=== PATIENT | male | born 1940 | race Caucasian/White ===

== ENCOUNTER → 2017-03-05 | Outpatient (CLI) | payer BC ==
[~2017-03-05] MED LIST: METO25TA3 PO; MULT-618 PO; OMEG10007 PO; SIMV20TA2 PO
--- NOTE | 2017-03-05 11:05 | DIAGNOSTIC IMAGING REPORT ---
KUB CLINICAL HISTORY: Nocturia. Nephrolithiasis. COMPARISON STUDY: KUB April 04, 2016. FINDINGS: Pelvic calcifications were shown to represent phleboliths on prior CT. Vascular calcifications are noted. No urinary calculi are identified although the renal shadows are partially obscured by stool. IMPRESSION: No urinary calculi identified although both renal shadows partially obscured by stool. Electronically signed by: Isaías Richter M.D. 03/05/2017 11:03 AM Dictated Date/Time: 03/05/2017 11:02 AM
[2017-03-05 11:23] LABS: ALT/SGPT 28 U/L (12-78); AST/SGOT 20 U/L (15-37); BLOOD UREA NITROGEN 13 mg/dl (7-18); BUN/CREATININE RATIO 12.7 (10-20); CALCIUM 9.3 mg/dl (8.5-10.1); CARBON DIOXIDE 30 mmol/L (21-32); CHLORIDE 108 mmol/L (98-107); GLUCOSE 65 mg/dl (70-99); MAGNESIUM 1.9 mg/dl (1.8-2.4); POTASSIUM 4.3 mmol/L (3.5-5.1); SODIUM 143 mmol/L (136-145)
== END | disposition home or self-care (01) ==
LOC: C.RAD 09:28
PROVIDERS: ATTEND Urology
DX: R35.1 Nocturia (principal); N40.0 Benign prostatic hyperplasia without lower urinary tract symptoms; E78.5 Hyperlipidemia, unspecified; I48.91 Unspecified atrial fibrillation

== ENCOUNTER → 2017-06-12 | Outpatient (CLI) | payer BC ==
[2017-06-12 09:54] LABS: ALT/SGPT 26 U/L (12-78); AST/SGOT 19 U/L (15-37); BLOOD UREA NITROGEN 15 mg/dl (7-18); BUN/CREATININE RATIO 16.3 (10-20); CALCIUM 8.9 mg/dl (8.5-10.1); CARBON DIOXIDE 25 mmol/L (21-32); CHLORIDE 109 mmol/L (98-107); GLUCOSE 105 mg/dl (70-99); POTASSIUM 4.1 mmol/L (3.5-5.1); SODIUM 143 mmol/L (136-145)
[2017-06-12 09:57] LABS: CHOLESTEROL 122 mg/dl (0-200); CHOLESTEROL/HDL RATIO 2.3; HDL CHOLESTEROL 53 mg/dl; LDL CHOLESTEROL CALCULATED 55 mg/dl; TRIGLYCERIDES 70 mg/dl (0-150); VERY LOW DENSITY LIPOPROT CALC 14 mg/dl
== END | disposition home or self-care (01) ==
LOC: C.LAB 07:10
DX: E78.5 Hyperlipidemia, unspecified (principal); I48.91 Unspecified atrial fibrillation

== ENCOUNTER 2022-01-13 05:14 | Observation (INO) ==
--- NOTE | 2021-12-30 13:01 | PAT Medication Instructions ---
Medication Instructions Date of Service December 30, 2021 Home Medications Medication Instructions Recorded apixaban 5 mg tablet (Eliquis) 5 mg PO BID #180 tab 01/14/21 metoprolol succinate 50 mg 50 mg PO QAM #90 tab 01/14/21 tablet,extended release 24 hr (Toprol XL) atorvastatin 20 mg tablet 20 mg PO HS rfmwxysg-pjn-sgpvs acid 300 mcg-lycopene 600 mcg-lutein 300 mcg tablet (Centrum Silver Men) 1 tab PO QAM apixaban 5 mg tablet (Eliquis) 5 mg PO BID metoprolol succinate 50 mg tablet,extended release 24 hr (Toprol XL) 50 mg PO QAM ASK your prescriber and surgeon apixaban 5 mg tablet (Eliquis) 5 mg PO BID (in order to get spinal anesthesia- will need to hold Eliquis/apixaban at least 72 hours prior to surgery) DO NOT take the morning of surgery mzkbrikl-zjf-tonne acid 300 mcg-lycopene 600 mcg-lutein 300 mcg tablet (Centrum Silver Men) 1 tab PO QAM Take morning of surgery With a small sip of water, OTHERWISE NOTHING TO EAT OR DRINK AFTER MIDNIGHT: metoprolol succinate 50 mg tablet,extended release 24 hr (Toprol XL) 50 mg PO QA M Take evening before surgery atorvastatin 20 mg tablet 20 mg PO HS Other Notes If you have any questions please call us at [phone] or [phone] or [phone] or [phone]
--- NOTE | 2022-01-02 09:53 | Anesthesiology Consultation ---
Date of Service January 02, 2022 Assessment & Plan (1) Encounter for pre-operative examination: - cardiology 01/14/21 MN: "...When he has the symptoms he describes an unusual feeling in his chest, he says it is not pain but the start of an empty feeling, he then checks his pulse and notes that it is irregular and somewhat fast...a little lightheaded if he stands up quickly when he is having these symptoms but otherwise it does not interfere much with his activities. He may have a little bit of fatigue when he strenuously exerts himself during the arrhythmia...occasional episodes of atrial fibrillation...some mild shortness of breath with climbing stairs, but he can play 18 holes of golf while he is in atrial fibrillation and really be unaware of it. He is not having any difficulty on his Eliquis...Paroxysmal atrial fibrillation: He continues to have occasional episodes of atrial fibrillation, these are not bothersome and do not seem to be increasing significantly in frequency or duration. I do not see any reason to change his treatment plan..." - COVID screening: Per assessment on 01/02/2022: Travel screen negative, no known COVID-19 positive contacts or current COVID-19 related symptoms in past 2 weeks. Pt vaccinated. Surgeon arranging preop COVID testing, scheduled 01/11/2022. Awaiting results. Chart Review Chart Review: Acceptable Risk for Surgery and Patient seen in Pre Admission Farzana ritika Teaching & Discussion Pre-Anesthesia Teaching/Discussion Notes: Instructed NPO after midnight before surgery, except medications with 15 cc of water. Medication instructions provided according to the PAT guidelines. History Surgery Operation Date: 01/13/22 07:00 Proposed Procedures p Left Total Knee Arthroplasty - Major Romano DO Height/Weight Height: 5 ft 11.5 in Weight: 81.6 kg Allergies Allergy/AdvReac Type Severity Reaction Status Date / Time No Known Drug Allergies Allergy Verified 12/28/21 13:50 GUACAMOLE AdvReac Intermediate VOMITTING/D Uncoded 04/18/21 13:17 IARRHEA Medications Home Medications Medication Instructions Recorded Confirmed Last Taken atorvastatin 20 mg tablet 20 mg PO HS 02/17/19 12/28/21 05/30/20 21:00 isvtcjlj-bjr-ptlji acid 300 1 tab PO QAM 02/17/19 12/28/21 05/28/20 08:00 mcg-lycopene 600 mcg-lutein 300 mcg tablet (Centrum Silver Men) apixaban 5 mg tablet (Eliquis) 5 mg PO BID #180 tab 01/14/21 12/28/21 Unknown metoprolol succinate 50 mg 50 mg PO QAM #90 tab 01/14/21 12/28/21 Unknown tablet,extended release 24 hr (Toprol XL) Past Medical History Medical History (Updated 01/03/22 @ 09:11 by Sakina Joseph PA-C) Atrial fibrillation Eliquis Follows with [facility] cardiology (Dr. Alexander) History of kidney stones History of skin cancer Hyperlipidemia Osteoarthritis Patient denies h/o stroke, seizures, heart attack, heart failure, DM, HTN, blood clots or blood transfusions. Exercise / Class Metabolic Activity II 4-5 Yardwork/Stairs/Walk up hill (occasional shortness of breath with activity chronic with afib per pt, resolves once partway upstairs; denies chest discomfort; noted in cardio records) Past Family History Family History Father Stroke Past Surgical History Surgical History (Updated 12/28/21 @ 13:58 by Kelly Larios RN) H/O elbow surgery LEFT History of cataract surgery RT/LEFT History of colonoscopy History of herniorrhaphy INGUINAL History of lithotripsy History of tooth extraction Hx of prostate biopsy Past Anesthesia History No Hx of Anesthesia Complications and No Family Hx of Anesthesia Complications History of PONV No Hx of PONV and No Hx of Motion Sickness Social History Smoking Status: Never smoker Do You Dip or Chew Tobacco: No Hx Alcohol Use: Yes Alcohol type: beer and wine alcohol intake frequency: other Alcohol Intake Frequency Comment: RARELY Hx Substance Use: No substance use type: does not use Review of Systems Pt states infrequently if sitting and resting then stands will feel palpitations with associated brief lightheadedness, denies presyncope or syncope. Also noted in cardio records. Patient denies chest pain, snoring, witnessed apneas, reflux, fever, chills, cough or wheezing. Physical Exam Vital Signs Vitals BP 127/76 P 67 TEMP 98.7 SP02 97% on RA RESP 17 Physical Full cervical extension range of motion without pain TMD 3.5 finger breaths Mallampati Score 3 Dentition: upper removable partial; denies chipped or loose teeth, implants or bridges Lungs: normal respiratory effort. Clear throughout to auscultation, no judaism itious breath sounds Cardiac: regular rate and rhythm, no murmurs noted Carotid arteries: negative bruit bilat Lab Results Anesthesia Preop Results Results Anesthesia Widget: WBC 7.12 K/uL (4.8-10.8) 01/02/22 Hgb 15.0 g/dL (14.0-18.0) 01/02/22 Hct 44.3 % (42-52) 01/02/22 Plt 195 K/uL (130-400) 01/02/22 Na 140 mmol/L (136-145) 01/02/22 K 4.5 mmol/L (3.5-5.1) 01/02/22 Cl 106 mmol/L (98-107) 01/02/22 CO2 29 mmol/L (21-32) 01/02/22 BUN 20 mg/dl (6-23) 01/02/22 Creat 0.97 mg/dl (0.6-1.4) 01/02/22 Glucose Level 105 mg/dl (70-99(Fasting)) H 01/02/22 PT 11.6 Seconds (9.0-12.0) 01/02/22 PTT 30.2 Seconds (21.0-31.0) 01/02/22 INR 1.1 (0.9-1.1) 01/02/22 Blood Type A Positive 01/02/22 Antibody Screen NEGATIVE 01/02/22 Testing Electrocardiogram Date: 01/02/22 NSR, rate 65 bpm Left anterior fascicular block Chest X-Ray Date: 01/02/22 The cardiomediastinal and hilar silhouettes are within normal limits. Probable nipple shadow the right lung base. The patient is mildly rotated on the lateral view. Mild pulmonary hyperinflation. No pneumothorax, pleural effusion, airspace consolidation or overt pulmonary edema. Healed chronic fracture deformity of the posterior left fifth rib. IMPRESSION: No acute process.
[2022-01-13] MEDS ORDERED: ceFAZolin 2000MG 2,000 MG/15 ML SYR IV SCH (06:00)
[2022-01-13] MEDS ORDERED: dexAMETHasone 4 MG TAB PO SCH ×2 (06:00→11:00)
[2022-01-13] MEDS ORDERED: Ketorolac (*for OR use only*) 30 MG, dexAMETHasone 4 MG, KETAMINE HCL (**OR use only) 1... INFIL SCH (06:00)
[2022-01-13] MEDS ORDERED: TRANEXAMIC ACID 1,000 MG **IV Intra-op IV SCH (06:00)
[2022-01-13] MEDS ORDERED: LR 15ML/HR IV SCH (06:00)
[2022-01-13] MEDS ORDERED: ACETAMINOPHEN 500 MG TAB PO SCH (06:00)
[2022-01-13] MEDS ORDERED: LR 60ML/HR IV SCH (06:00)
[2022-01-13] MEDS ORDERED: LR 500ML BOLUS IV SCH (06:00)
[2022-01-13] MEDS ORDERED: FAMOTIDINE 20 MG TAB PO SCH (06:00)
[2022-01-13] MEDS ORDERED: TRANEXAMIC ACID 1,000 MG **IV Pre-op IV SCH (06:00)
[2022-01-13] MEDS ORDERED: GABAPENTIN 300 MG CAP PO SCH (06:00)
[2022-01-13] MEDS ORDERED: MIDAZOLAM HCL 1 MG/ML 2ML VIAL ONE (06:29)
[2022-01-13] MEDS ORDERED: PROPOFOL IV EMULSION 10 MG/ML 20 ML VIAL IV ONE (06:29)
[2022-01-13] MEDS ORDERED: fentaNYL citrate 100 MCG/2 ML VIAL ONE (06:29)
[2022-01-13] MEDS ORDERED: BUPIVACAINE 0.5 % 5 MG/1 ML PF 10ML VIAL ONE (06:36)
[2022-01-13] MEDS ORDERED: ORTHO JOINT ANESTHETIC ONE (06:40)
--- NOTE | 2022-01-13 06:42 | History & Physical Bridge Note ---
Date of Service January 13, 2022 History & Physical Bridge Note I have examined the patient, reviewed the History & Physical and in the interval since the performance of the History & Physical I have noted the following changes of clinical significance: no changes noted
[2022-01-13] MEDS ORDERED: ONDANSETRON INJ 2 MG/ML 2 ML VIAL ONE (07:14)
[2022-01-13] MEDS ORDERED: ePHEDrine sulfate 50 MG/ML AMP ONE (07:20)
[2022-01-13] MEDS ORDERED: ONDANSETRON INJ 2 MG/ML 2 ML VIAL IV PRN ×2 (07:21→09:55)
[2022-01-13] MEDS ORDERED: ATROPINE SULFATE 0.1 MG/ML 10ML SYR IV PRN (07:21)
[2022-01-13] MEDS ORDERED: fentaNYL citrate 100 MCG/2 ML VIAL IV PRN (07:21)
[2022-01-13] MEDS ORDERED: ePHEDrine sulfate 50 MG/ML AMP IV PRN (07:21)
--- NOTE | 2022-01-13 08:00 | Operative Report ---
PG Post Operative Report Pre & Post Diagnosis Operation Date: 01/13/22 07:00 Pre-Op Diagnosis: Left Knee Osteoarthritis Post-Op Diagnosis: Left Knee Osteoarthritis I identified the patient and participated in the time-out.: Yes Procedure Operation Date: 01/13/22 07:00 Actual Procedures p Left Total Knee Arthroplasty(Left) - Major Romano DO Surgeon Major Romano DO [employer] Service Team Member Major Mckeon PAC Estimated Blood Loss 30 Findings Consistent with Post-Op Diagnosis Specimens Left femoral and tibial bone Complications none Disposition Disposition: Recovery Room Indications Richmond is a pleasant 81-year-old male who is been doing with chronic increasing left knee pain. X-rays and clinical examination are diagnostic for advanced arthritis of the left knee. After failing conservative treatment, he elected proceed with a left total knee arthroplasty. Description of Procedure Implants used: I used a Davian Persona total knee arthroplasty system with a size 10 standard femur, G tibia, 34 oval patella, and a size 11 medial congruent polyethylene bearing. All components were cemented in place with Biomet cement. Richmond arrived [facility] for the above procedure. He was seen in the preoperative holding area and the operative extremity was identified and signed. He was given a preoperative antibiotic, TXA, a spinal anesthetic and an adductor nerve block. He was taken back to the operating room and laid on the table in supine position. He was given basic sedation. The operative knee was then prepped and draped in sterile fashion. A timeout was done, and the patient and the operative extremity was properly identified. A midline incision was made directly over the patella. Dissection was taken down to the extensor mechanism. A subvastus arthrotomy was used. The medial retinaculum was released and the fat pad was mostly excised. The knee was flexed and the ACL, PCL, and meniscus were removed. A drill was sent down the center of the femoral canal followed by an intramedullary alaina. Off that alaina a distal femoral cutting block was placed. 9 mm was resected off the distal femur at 5 of valgus. A posterior referencing AP sizing guide was then placed on the distal femur. The femur measured to be a size 10. 2 drill holes were placed in 3 of external rotation. A 4-in-1 cutting block was then impacted into place. Anterior, posterior, and chamfer cuts were then made. The proximal tibia was then exposed. An external tibial alignment guide was placed. A tibial cut guide was then anchored in place and the proximal tibia was then resected. The posterior aspect of the knee was then opened up and any additional meniscus fragments and osteophytes were removed. The tibia measured to be a size G. The tibial plate was then placed in the idalia ropriate rotation and the tibia was drilled and punched. Trial components were then placed. I used a size 11 medial congruent polyethylene insert. The knee was brought through a full range of motion and felt to be stable. The peg holes for the femoral component were then drilled. The patella was then everted and 9 mm was resected off the posterior aspect of the patella. The patella measured to be a size 34 oval. 3 peg holes were then drilled. A trial patella was placed. The knee was once again brought through a full range of motion and felt to be stable. Trial components were then removed. The surrounding soft tissues were injected with 100 cc of an orthopedic pain control cocktail. All components were then cemented into place with Biomet cement. The final polyethylene insert was then snapped into place. Once cement was dry the tourniquet was deflated. Hemostasis was obtained. A dilute betadyne lavage was then done for 3 minutes. The joint was then irrigated with normal saline solution. The subvastus arthrotomy was then closed with #1 Vicryl suture. The skin was closed with 2-0 Vicryl, 3-0V lock suture, and laura. A soft compressive dressing was placed. He was then transferred to a hospital bed and taken to the postanesthesia care unit in stable condition. He tolerated the procedure well. Major Mckeon PA-C, was present for the entire procedure. He was critical for patient positioning, prepping, draping, retraction exposure, wound closure and application of sterile dressing. I attest to the content of the Intraoperative Record and any orders documented therein. Any exceptions are noted below.
--- NOTE | 2022-01-13 09:10 | XRay Report ---
XR knee LT 1 or 2V routine CLINICAL HISTORY: Postoperative evaluation. COMPARISON: Left knee radiographs September 13, 2021. FINDINGS: Alignment of the total left knee arthroplasty is anatomic. There is no periprosthetic frac ture or unexpected radiopaque foreign body. There are skin laura. IMPRESSION: Expected findings following total left knee arthroplasty. ACT 112: Negative or not required by law. Electronically signed by: Isaías Richter M.D. 01/13/2022 9:09 AM
--- NOTE | 2022-01-13 09:26 | Anesthesiology Progress Note ---
Date of Service January 13, 2022 Anesthesia Post Procedure Vital Signs Vital Signs: Temp Pulse Pulse Resp BP Pulse Ox 01/13/22 09:05 79 17 103/63 98 01/13/22 08:55 72 16 102/77 97 01/13/22 08:45 76 19 100/80 97 01/13/22 08:35 70 21 105/73 97 01/13/22 08:26 97.2 F L 76 13 94/62 L 98 01/13/22 05:33 98.4 F 74 20 133/71 97 Transfer of Care Handoff Completed per policy Notes Mental Status: alert / awake / arousable and participated in evaluation Patient Amnestic to Procedure: Yes Nausea / Vomiting: adequately controlled Pain: adequately controlled Airway Patency, RR, SpO2: stable & adequate BP & HR: stable & adequate Hydration State: stable & adequate Neuraxial Anesthesia: was administered and sensory block is resolving Anesthetic Complications: no major complications apparent and Pt Satisfied with anesthetic care
[2022-01-13] MEDS ORDERED: oxyCODONE HCL IR 5 MG TAB (IMMEDIATE RELEASE) PO PRN (09:55)
[2022-01-13] MEDS ORDERED: HYDROmorphone INJ 0.5 MG/0.5 ML SYR IV PRN (09:55)
[2022-01-13] MEDS ORDERED: METOCLOPRAMIDE HCL INJ 5 MG/ML 2 ML VIAL IV PRN (09:55)
[2022-01-13] MEDS ORDERED: MULTIVITAMIN TAB PO SCH (09:55)
[2022-01-13] MEDS ORDERED: NALOXONE HCL 0.4 MG/1 ML VIAL/CARP IV PRN (09:55)
[2022-01-13] MEDS ORDERED: MAGNESIUM HYDROXIDE SUSP 30 ML UDC PO PRN (09:55)
[2022-01-13] MEDS ORDERED: bisacodyL 10 MG SUPP PR PRN (09:55)
[2022-01-13] MEDS: SODIUM CHLORIDE 0.9% 1000ML 1,000 ML IV SCH ×2 (11:52→21:55)
[2022-01-13] MEDS: METOPROLOL SUCC 50MG EXT REL TAB PO SCH (11:53)
[2022-01-13] MEDS: DOCUSATE SODIUM 100 MG CAP PO SCH ×2 (12:36→19:45)
[2022-01-13] MEDS: KETOROLAC TROMETHAMINE 15 MG/ML VIAL IV SCH ×3 (12:36→21:46)
[2022-01-13] MEDS: ACETAMINOPHEN 500 MG TAB PO SCH ×2 (14:17→21:44)
[2022-01-13] MEDS: ceFAZolin 2000MG 2,000 MG/15 ML SYR IV SCH (16:14)
[2022-01-13] MEDS ORDERED: ATORVASTATIN 20 MG TAB PO SCH (21:00)
[2022-01-13] MEDS ORDERED: SENNA 8.6 MG TAB PO SCH (21:00)
[2022-01-14] MEDS: ceFAZolin 2000MG 2,000 MG/15 ML SYR IV SCH (00:42)
[2022-01-14] MEDS: KETOROLAC TROMETHAMINE 15 MG/ML VIAL IV SCH ×2 (04:02→10:06)
[2022-01-14] MEDS: ACETAMINOPHEN 500 MG TAB PO SCH (05:34)
--- NOTE | 2022-01-14 07:11 | Orthopedic Progress Note ---
Date of Service January 14, 2022 Assessment & Plan (1) Status post left knee replacement: Overall is doing very well. Is not having any pain in the left knee. He will be seen by physical therapy today for ambulation and range of motion exercises. We will encourage voiding throughout the morning. If he is able to void, he can be discharged to home on oral pain medications. He is on Eliquis for DVT prophylaxis. He will follow-up with orthopedics in 2 weeks. Jason Richmond was seen and examined at bedside this morning. Overall is doing very well. Is not having much pain in the right knee. He had to be catheterized last night and he has not voided yet. He has been able to ambulate to the bathroom. He has no complaints. Review of Systems All systems reviewed & are unremarkable except as noted in HPI & below. Physical Exam On physical examination of the left knee, his dressing is clean and dry. His leg is out full extension. He has active dorsiflexion plantarflexion of his left ankle. Results & Data Results & Data Laboratory Results . Diagnostic Findings Postoperative x-rays of the left knee show the prosthesis to be in anatomic alignment without any evidence of fracture, desiccation, or loosening. PG Care Time/CCT Total # of Minutes Spent Total Time Spent with Patient: Total time spent is greater than 50% in coordination of care (as documented) at patient's floor/unit and/or counseling patient: Coding Level of Care Code 44633 Post Operative Follow-Up Diagnoses Status post left knee replacement Z96.652
--- NOTE | 2022-01-14 07:12 | Discharge Summary ---
Date of Service January 14, 2022 Principal Diagnosis Same as "Discharge Diagnosis" noted below under Discharge Instructions. Discharge Exam On physical examination of the left knee, his dressing is clean and dry. His leg is out full extension. He has active dorsiflexion plantarflexion of his left ankle. Discharge Data Procedures Performed Operation Date: 01/13/22 07:00 Actual Procedures p Left Total Knee Arthroplasty(Left) - Major Romano DO Ordered Studies 01/13/22 05:00 US - OR guided needle placemen Routine Hospital Course (1) Status post left knee replacement: On January 13 Richmond arrived at [facility] and underwent a left knee replacement without complication. He had a spinal anesthetic. Postoperatively he was started on Eliquis for DVT prophylaxis and transferred to the general orthopedic floors. His hospital course was uneventful. On postop day #1, his vital signs are stable and his pain was well controlled. He was able to participate well with physical therapy doing ambulation and range of motion exercises. He was able to void. He was then discharged home. He will follow-up with orthopedics in 2 weeks. PG Care Time/CCT Total # of Minutes Spent Total Time Spent with Patient: Total time spent is greater than 50% in coordination of care (as documented) at patient's floor/unit and/or counseling patient: Discharge Plan Discharge Items Patient Disposition: Home - Home Health Services Reason For Visit: Left Knee Osteoarthritis Discharge Diagnosis: Left knee replacement Activity: As commented below Non-emergency contact: Surgeon Call non-emergency contact if: your wound has increased redness and your wound has increased drainage Follow-up/Referrals: Anupam Cohen Jr, DO [Primary Care Provider] - Diet: Regular Addtl Attending Provider Instructions: Activity and Therapy Recommendations: * If you are using [facility] then therapy will be provided at your home until they feel you have accomplished all of your goals. * If you are using [facility] then Physical Therapy will be provided until they feel you are ready to start Outpatient Physical Therapy. * If you are not using home therapy then Outpatient Physical Therapy should start about 3-5 days from your day of surgery. Therapy will last about 6-10 weeks * It is important not to put a pillow under your knee when you are relaxing or sleeping. It is just as important to make sure you are getting your knee perfectly straight as it is to regain your knee bend. * You were shown a series of exercises in the hospital. Do these exercises three times each day including the exercises you were shown in physical therapy. * Get up and walk several times each day. For the first four weeks, try not to stand or walk for more than one hour at a time. If you do stand or walk for more than one hour, you will not hurt anything, but your leg will likely swell. * As you feel comfortable, you may change from the walker or crutches to a cane and then to independent walking. Medications: * Narcotic You will likely be sent home from the hospital with a prescription for the narcotic pain medication that worked best throughout your stay. * Eliquis continue taking yourEliquis as prescribed * Other medications may be prescribed for specific circumstances. If you have any questions, please call the office at . * Resume previous home medications unless otherwise instructed TEDs/Elastic Stockings: The white elastic stockings help limit swelling and prevent blood clots from forming in your legs.~ The more you wear them, the more they work. Wear them for six weeks. Dressing Care: The dressing can be changed after physical therapy on postop day #1. Daily dry dressing changes for a few days, especially if the incision is still draining some. If the incision is not draining then you may leave the laura open to air. If there is a little bit of drainage or if the laura are getting stuck on your clothing then cover the incision with a dry dressing. The laura will be removed at your 2 week follow-up appointment. Showering: You may shower 5 days from the day of surgery as long as the incision is no longer draining. You may shower with the laura exposed. Let soapy water run over the laura and pat them dry. Do not scrub or soak the incision. Things To Watch For: * Drainage from the incision site that occurs more than one week after your surgery. * Increased redness at the incision site. * Fever above 102 degrees Fahrenheit. * Unusual chest pain or shortness of breath. * Call [facility] at with any of the above problems Follow-Up Visit: Follow-up with Dr. Romano's PA (Major Mckeon) 2-3 weeks after your day of surgery. He will remove your laura and answer any questions. If you have any additional questions or concerns, Dr Romano is usually in the office at the same time and will be available An appointment was probably scheduled when you signed-up for surgery in the office. If you have any questions call Office Instructions: More detailed instructions as well as Frequently Asked Questions were provided in a folder by our office when you signed-up for surgery. Please review these instructions when you get home. If you have any further questions or concerns, please feel free to call the office at [phone] Pending Studies at Discharge: No Stand-Alone Forms: [facility] [employer], Smoking Cessation Medications and DC Order Prescriptions: New oxycodone-acetaminophen 5-325 mg tablet 1 tab PO Q6H PRN (Reason: pain) Qty: 30 RF: 0 Continued Eliquis 5 mg tablet 5 mg PO BID Qty: 180 RF: 3 metoprolol succinate [Toprol XL] 50 mg tablet extended release 24 hr 50 mg PO QAM Qty: 90 RF: 3 atorvastatin 20 mg Tablet 20 mg PO HS RF: 0 Centrum Silver Men 300-600-300 mcg Tablet 1 tab PO QAM RF: 0 Discharge Orders: Discharge Order (Routine); Ordered 01/14/22 Ordered By: Major Romano Admission Data Admit Date/Time: 01/13/22 08:26 Attending Provider: Major Romano Admit Provider: Major Romano Primary Care Provider: Anupam Cohen Jr
[2022-01-14] MEDS: METOPROLOL SUCC 50MG EXT REL TAB PO SCH (08:47)
[2022-01-14] MEDS: DOCUSATE SODIUM 100 MG CAP PO SCH (08:48)
[2022-01-14] MEDS ORDERED: APIXABAN 5 MG TABLET PO SCH (09:00)
[2022-01-14] MEDS ORDERED: CEROVITE ADV FORMULA TAB PO SCH (09:00)
== END 2022-01-14 15:11 | disposition home health service (06) ==
LOC: PACUINP 05:14 → ASU 05:14 → 3E 11:31

== ENCOUNTER 2022-03-21 02:06 | Inpatient (IN) ==
[2022-03-21] MEDS ORDERED: MoRPHine SULFATE 4 MG/ML 1 ML CARP\\VIAL IV STA (02:33)
[2022-03-21] MEDS ORDERED: ONDANSETRON 4 MG OD TAB PO STA (02:33)
[2022-03-21 02:59] LABS: Basophils # (auto) 0.03 K/uL (0-0.2); Basophils % (auto) 0.2 %; Eosinophils # (auto) 0.01 K/uL (0-0.50); Eosinophils % (auto) 0.1 %; Hemoglobin 15.1 g/dl (14.0-18.0); Immature Granulocytes # (auto) 0.07 K/uL (0.00-0.02); Immature Granulocytes % (auto) 0.5 %; Lymphocytes # (auto) 1.04 K/uL (1.2-3.4); Lymphocytes % (auto) 6.8 %; Mean Corpuscular Hemoglobin 32.5 pg (25.0-34.0); Mean Corpuscular Hgb Conc 34.3 g/dL (32.0-36.0); Mean Corpuscular Volume 94.6 fL (80.0-100.0); Mean Platelet Volume 9.1 fL (9.4-12.4); Monocytes # (auto) 0.82 K/uL (0.24-0.82); Monocytes % (auto) 5.3 %; Neutrophils # (auto) 13.41 K/uL (1.4-6.5); Neutrophils % (auto) 87.1 %; Platelet Count 205 K/uL (130-400); RDW Coefficient of Variation 11.9 % (11.5-14.5); RDW Standard Deviation 41.6 fL (36.4-46.3); Red Blood Count 4.65 M/uL (4.63-6.08); White Blood Count 15.38 K/ul (4.8-10.8)
[2022-03-21 03:01] LABS: Appearance Urine Clear (Clear); Bacteria Urine Automated Negative (Negative); Bilirubin Urine Negative (Negative); Blood Urine Negative (Negative); Color Urine Yellow; Glucose Urine UA Negative (Negative); Ketones Urine 3+ (Negative); Leukocyte Esterase Urine Trace (Negative); Nitrite Urine Negative (Negative); RBC Urine Automated 0-4 /hpf (0-4); Specific Gravity Urine 1.029 (1.000-1.030); Urobilinogen Urine Negative (Negative); pH Urine 7.5 (4.5-7.5)
[2022-03-21] MEDS ORDERED: SODIUM CHLORIDE 0.9% 1000ML 500 ML IV ONE (03:02)
[2022-03-21] MEDS ORDERED: HYDROmorphone INJ 0.5 MG/0.5 ML SYR IV STA (03:02)
--- NOTE | 2022-03-21 03:10 | Emergency Department Note ---
History of Present Illness General Chief complaint: Abdominal Pain Stated complaint: ABD PAIN Time Seen by Provider: 03/21/22 02:18 History of Present Illness Maximum Pain Intensity: 10 This 81-year-old presents to the ER complaining of right upper quadrant pain after eating ham salad today Location: Right upper quadrant Quality: Painful Severity: Severe Duration: Today Timing: Today Context: Patient was concerned and came in Modifying factors: better with rest; worse with palpation Patient denies chest pain, dyspnea, vomiting, diarrhea, flulike illness. No history of similar symptoms in the past. He still has his gallbladder. Home Medications Medication Instructions Recorded Confirmed Type atorvastatin 20 mg tablet 20 mg PO HS 02/17/19 02/28/22 History ebbuhqmy-uzg-[id number] acid 300 1 tab PO QAM 02/17/19 02/28/22 History mcg-lycopene 600 mcg-lutein 300 mcg tablet (Centrum Silver Men) oxycodone-acetaminophen 5 mg-325 1 tab PO Q6H PRN pain #30 tabs 01/14/22 02/28/22 Rx mg tablet alfuzosin 10 mg tablet,extended 10 mg PO DAILY #30 tabs 01/16/22 02/28/22 Rx release 24 hr apixaban 5 mg tablet (Eliquis) 5 mg PO BID #180 tabs 01/17/22 02/28/22 Rx metoprolol succinate 50 mg 50 mg PO QAM #90 tabs 01/17/22 02/28/22 Rx tablet,extended release 24 hr (Toprol XL) Allergies Allergy/AdvReac Type Severity Reaction Status Date / Time No Known Drug Allergies Allergy . Verified 02/28/22 10:54 Past Med/Surg History Medical History Atrial fibrillation Eliquis Follows with [facility] [place] cardiology (Dr. Alexander) History of kidney stones History of skin cancer Hyperlipidemia Osteoarthritis Surgical History H/O elbow surgery LEFT History of cataract surgery RT/LEFT History of colonoscopy History of herniorrhaphy INGUINAL History of lithotripsy History of tooth extraction Hx of prostate biopsy Family History Father Stroke Social History Smoking Status: Never smoker Second Hand Exposure: No; Hx Alcohol Use: Yes Alcohol type: beer and wine Hx Substance Use: No Preferred Language: Tajik Communication Ability: Effective Yard Driver Required: No Beliefs That Will Affect Care: None marital status: Life Partner Current Living Situation: Significant Other Current Living Situation Comment: " [facility]" IN [place]ATE [place] EACH YR current occupational status: retired Feels Safe at Home: Yes Assistive Devices: Walker Review of Systems A total of 10 systems reviewed and were otherwise negative Physical Exam Vital Signs Vital Signs - 24 hr 03/21/22 02:11 03/21/22 03:16 03/21/22 03:16 Temperature 36.7 C Temperature Source Temporal Artery Scan Pulse Rate 92 H 84 Pulse Rate [Apical] 84 Pulse Rhythm Regular Pulse Rhythm [Apical] Regular Pulse Strength [Apical] Normal Respiratory Rate 18 16 16 Respiratory Effort / Characteristics Non-Labored Spontaneous Respiratory Depth Normal Normal Respiratory Pattern Regular Blood Pressure 166/91 H Blood Pressure [Right Arm] 148/99 H Blood Pressure Mean 116 Blood Pressure Mean [Right Arm] 115 Blood Pressure Position [Right Arm] Lying Pulse Oximetry 98 96 96 Oxygen Delivery Method Room Air Room Air Room Air Sepsis Recent Fever Within 48 Hours No Sepsis New/Unexplained Change in Mental Status N/A Sepsis Action Taken by Nursing No Action Required 03/21/22 05:00 Temperature Temperature Source Pulse Rate Pulse Rate [Apical] 80 Pulse Rhythm Pulse Rhythm [Apical] Pulse Strength [Apical] Respiratory Rate 20 Respiratory Effort / Characteristics Respiratory Depth Respiratory Pattern Blood Pressure Blood Pressure [Right Arm] 142/82 H Blood Pressure Mean Blood Pressure Mean [Right Arm] 102 Blood Pressure Position [Right Arm] Pulse Oximetry 94 Oxygen Delivery Method Room Air Sepsis Recent Fever Within 48 Hours Sepsis New/Unexplained Change in Mental Status Sepsis Action Taken by Nursing VITALS: Vitals are noted on the nurse's note and reviewed by myself. Vital signs stable. GENERAL: Pleasant male pacing the room in pain, in no acute distress, nondiaphoretic, well-developed well-nourished. SKIN: The skin was without rashes, erythema, edema, or bruising. There is no tenting of the skin. Capillary reflex less than 2 seconds. HEAD: Normocephalic atraumatic. EARS: External auditory canals clear, EYES: Pupils equal round and reactive to light and accommodation. Conjunctivae without injection, sclerae without icterus. Extraocular movements intact. NOSE: Patent, turbinates without inflammation or discharge. MOUTH: Mucous membranes moist. Pharynx without erythema or exudate. Uvula midline. Airway patent. Tongue does not deviate. NECK: Supple without nuchal rigidity. No lymphadenopathy. No thyromegaly. Cervical spine is nontender. No JVD. HEART: Regular rate and rhythm LUNGS: Clear to auscultation bilaterally without wheezes, rales or rhonchi. No retractions or accessory muscle use. ABDOMEN: Positive bowel sounds x 4. Normal tympanic percussion. Soft, tender right upper quadrant,, without masses or organomegaly. Tracy sign positive. No guarding or rebound tenderness. No CVA tenderness MUSCULOSKELETAL: No muscle atrophy, erythema, or edema noted. NEURO: Patient was alert and oriented to person place and time. Normal sensation to light and sharp touch. No focal neurological deficits. Course Administered Medications Discontinued Medications Hydromorphone HCl (Hydromorphone Inj 0.5 Mg/0.5 Ml Syr) 0.5 mg IV NOW STA Stop: 03/21/22 03:03 Last Admin: 03/21/22 03:09 Dose: 0.5 mg Documented By: GABE Sodium Chloride (Nss 1000ml) 500 mls @ 999 mls/hr IV .Q31M ONE Stop: 03/21/22 03:32 Last Infusion: 03/21/22 04:37 Dose: 0 mls/hr Documented By: Admin: 03/21/22 03:12 Dose: 999 mls/hr Documented By: GABE Ioversol (Optiray 300 500ml) 100 ml IV ONCE ONE Stop: 03/21/22 04:37 Last Admin: 03/21/22 04:37 Dose: 94 ml Documented By: WARREN Morphine Sulfate (Morphine Sulfate 4 Mg/Ml 1 Ml Carp\\Vial) 4 mg IV NOW STA Stop: 03/21/22 02:34 Last Admin: 03/21/22 02:49 Dose: 4 mg Documented By: GABE Ondansetron HCl (Ondansetron 4 Mg Od Tab) 4 mg PO NOW STA Stop: 03/21/22 02:34 Last Admin: 03/21/22 02:51 Dose: 4 mg Documented By: GABE Medical Decision Making Medical Records Attestation: I reviewed the patient's medical records. Home Medications Current Medication List: was personally reviewed by me Laboratory Data Attestation: I reviewed the patient's lab results. Result diagrams: 03/21/22 02:47 03/21/22 02:47 Lab Results 03/21/22 03/21/22 03/21/22 Range/Units 02:47 02:47 02:50 WBC 15.38 H (4.8-10.8) K/ul RBC 4.65 (4.63-6.08) M/uL Hgb 15.1 (14.0-18.0) g/dl Hct 44.0 (40.1-51.0) % MCV 94.6 (80.0-100.0) fL MCH 32.5 (25.0-34.0) pg MCHC 34.3 (32.0-36.0) g/dL RDW Std Deviation 41.6 (36.4-46.3) fL RDW Coeff of Marie 11.9 (11.5-14.5) % Plt Count 205 (130-400) K/uL MPV 9.1 L (9.4-12.4) fL Immature Gran % (Auto) 0.5 % Neut % (Auto) 87.1 % Lymph % (Auto) 6.8 % [place] % (Auto) 5.3 % Eos % (Auto) 0.1 % Baso % (Auto) 0.2 % Neut # (Auto) 13.41 H (1.4-6.5) K/uL Lymph # (Auto) 1.04 L (1.2-3.4) K/uL [place] # (Auto) 0.82 (0.24-0.82) K/uL Eos # (Auto) 0.01 (0-0.50) K/uL Baso # (Auto) 0.03 (0-0.2) K/uL Immature Gran # (Auto) 0.07 H (0.00-0.02) K/uL Sodium 136 (136-145) mmol/L Potassium 3.8 (3.5-5.1) mmol/L Chloride 102 (98-107) mmol/L Carbon Dioxide 21 (21-32) mmol/L Anion Gap 13 H (3-11) BUN 17 (6-23) mg/dl Creatinine 0.90 (0.6-1.4) mg/dl Est Cr Clr Drug Dosing 70.7 ml/min Est GFR ( Amer) 92.5 ml/min Est GFR (Non-Af Amer) 79.8 ml/min BUN/Creatinine Ratio 18.9 (10-20) Glucose 183 H (70-99(Fasting)) mg/dl Calcium 9.5 (8.5-10.1) mg/dl Total Bilirubin 1.2 H (0.2-1.0) mg/dl AST 17 (13-39) U/L ALT 13 (7-52) U/L Alkaline Phosphatase 106 H (34-104) U/L Troponin I High Sens 5.3 (0-20) pg/ml Total Protein 6.7 (6.0-8.3) gm/dl Albumin 4.1 (3.4-5.0) gm/dl Globulin 2.6 (2.5-4.0) gm/dl Albumin/Globulin Ratio 1.6 (0.9-2) Lipase 9 L (11-82) U/L Urine Color Yellow Urine Appearance Clear (Clear) Urine pH 7.5 (4.5-7.5) Ur Specific [place] 1.029 (1.000-1.030) Urine Protein Trace H (Negative) Urine Glucose (UA) Negative (Negative) Urine Ketones 3+ H (Negative) Urine Blood Negative (Negative) Urine Nitrite Negative (Negative) Urine Bilirubin Negative (Negative) Urine Urobilinogen Negative (Negative) Ur Leukocyte Esterase Trace H (Negative) Urine WBC (Auto) 5-10 H (0-5) /hpf Urine RBC (Auto) 0-4 (0-4) /hpf U Hyaline Cast (Auto) 1-5 (0-5) /lpf U Epithel Cells (Auto) 10-20 H (0-5) /lpf Urine Bacteria (Auto) Negative (Negative) Urine Yeast Not Reportable Imaging Data Attestation: I personally reviewed and interpreted this imaging study as follows: MDM Narrative Prior records/ancillary studies reviewed. Triage Nursing notes reviewed. Additional history obtained from family. The patient's history was concerning for abdominal pain. Differential diagnosis: Etiologies such as appendicitis, diverticulitis, PUD, biliary pathology, UTI, pancreatitis, obstruction, mesenteric ischemia, aortic pathology, infections, inflammatory bowel disease, renal colic, as well as others were entertained. Physical examination findings: As above. ER treatment provided: An order was placed for continuous cardiac monitoring. The monitor shows a rate of 60-1 20 with a sinus rhythm. Fluids, morphine, Dilaudid, Zofran On reassessment the patient felt better. Diagnostics interpreted by me: ECG: Ordered for upper abdominal pain EKG: Left anterior fascicular block, normal sinus, rate of 84. Impression normal sinus rhythm with a left anterior fascicular block interpreted by myself I think arrhythmia is unlikely. EKG shows no interval abnormalities such as WPW. There are no findings to suggest Brugada syndrome. Cardiac monitoring in the emergency department reveals no tachycardic or bradycardic dysrhythmia. Hypertrophic cardiomyopathy was considered but there are no clear historical elements pointing toward this. EKG is not suggestive. The QRS voltage is not extremely large and there are no suggestive Q waves. The labs revealed leukocytosis Hyperglycemia without DKA Imaging studies: US RUQ: Pancreas is not visualized The gallbladder is moderately distended measuring up to 10 cm in length. The wall measures 3 mm which is at the upper limits of normal in thickness. Small sludge but no stones identified. The common bile duct is normal in caliber at 4 mm The right kidney is normal Radiologist: Eric Driscoll MD Consultation: A consultation was placed with the GS, Dr David. The case was discussed and diagnostics were reviewed. The patient was evaluated in the ER for further treatment. Exam and history seem consistent with biliary colic concerning for acute cholecystitis. Surgery was consulted and will see the patient in the morning. Patient informed and all questions were answered. He was started on antibiotics. By the evaluation outlined above emergent etiologies such as appendicitis, diverticulitis, UTI, pancreatitis, obstruction, mesenteric ischemia, aortic pathology, inflammatory bowel disease, renal colic, as well as others were deemed relatively unlikely. The pt informed about the findings as listed above. All questions were answered and pleased with the treatment. The chart was completed utilizing Instant AV Speech voice recognition software. Grammatical errors, random word insertions, pronoun errors, and incomplete sentences are an occassional consequence of this system due to software limitations, ambient noise, and hardware issues. Any formal questions or concerns about the content, text, or information contained within the body of this dictation should be directly addressed to the physician patient services assistant for clarification. Impression & Plan Biliary colic, Abdominal pain, acute Discharge Plan Visit Data Chief Complaint: Abdominal Pain Stated Complaint: ABD PAIN ED Provider: Jc Samuels ED Midlevel Provider: Claudine Sawyer Discharge Problem: Biliary colic, Abdominal pain, acute Patient Disposition: Being Evaluated by Surgeon Condition: Good Forms Stand Alone Forms: [facility] [employer] Prescriptions Prescriptions: No Action alfuzosin 10 mg tablet extended release 24 hr 10 mg PO DAILY Qty: 30 2RF Rx Instructions: administer after the same meal each day Eliquis 5 mg tablet 5 mg PO BID Qty: 180 3RF metoprolol succinate [Toprol XL] 50 mg tablet extended release 24 hr 50 mg PO QAM Qty: 90 3RF atorvastatin 20 mg Tablet 20 mg PO HS Centrum Silver Men 300-600-300 mcg Tablet 1 tab PO QAM oxycodone-acetaminophen 5-325 mg tablet 1 tab PO Q6H PRN (Reason: pain) Qty: 30 0RF Referrals Referrals: Anupam Cohen Jr, DO [Primary Care Provider] -
[2022-03-21 03:12] LABS: Protein Urine Trace (Negative)
[2022-03-21 03:28] LABS: Troponin I High Sensitivity 5.3 pg/ml (0-20)
[2022-03-21 03:29] LABS: Albumin Globulin Ratio 1.6 (0.9-2); Albumin Level 4.1 gm/dl (3.4-5.0); BUN Creatinine Ratio 18.9 (10-20); Bilirubin,Total 1.2 mg/dl (0.2-1.0); Calcium 9.5 mg/dl (8.5-10.1); Creatinine Clr Calc Pharmacy 70.7 ml/min; Est GFR (African American) 92.5 ml/min; Est GFR (Non-African American) 79.8 ml/min; Globulin 2.6 gm/dl (2.5-4.0); Potassium 3.8 mmol/L (3.5-5.1); Total Protein 6.7 gm/dl (6.0-8.3)
[2022-03-21] MEDS ORDERED: OPTIRAY 300 500mL IV ONE (04:36)
[2022-03-21] MEDS ORDERED: PIPERACILLIN/TAZOBACTAM 4.5 GM/120 ML BAG IV ONE (06:24)
--- NOTE | 2022-03-21 07:07 | Ultrasound Report ---
ABDOMINAL ULTRASOUND, RIGHT UPPER QUADRANT HISTORY: Right upper quadrant pain.. COMPARISON: Abdomen and pelvis CT 12/27/2015. FINDINGS: Pancreas: Obscured by overlying bowel gas. Liver: Unremarkable. Gallbladder: No gallbladder wall thickening. No gallstones. Mildly distended. Small amount of sludge within the gallbladder versus artifact. CBD: 4 mm. Right kidney: No hydronephrosis. IMPRESSION: 1. Mildly distended gallbladder which may contain a small amount of sludge. No gallstones. 2. Normal liver. 3. The pancreas was obscured by overlying bowel gas. ACT 112: Negative or not required by law. Electronically signed by: Tristen Gonzalez M.D. 03/21/2022 7:06 AM
--- NOTE | 2022-03-21 08:36 | CT Scan Report ---
CT SCAN OF THE ABDOMEN AND PELVIS WITH IV CONTRAST CLINICAL HISTORY: Upper abdominal pain. COMPARISON STUDY: Abdominal CT dated 12/27/2015. Abdominal ultrasound dated 03/21/2022. TECHNIQUE: Following the IV administration of 94 cc of Optiray 300, CT scan of the abdomen and pelvi s is performed from the lung bases to the proximal femora. Images are reviewed in the axial, sagittal , and coronal planes. IV contrast was administered without complication. A dose lowering technique wa s utilized adhering to the principles of ALARA. CT DOSE: 367.32 mGy.cm FINDINGS: Lung bases: The heart is enlarged and without pericardial effusion. The coronary arteries are densely calcified. There is a small to moderate hiatal hernia. There are scattered calcified granulomas. Dep endent atelectasis is noted at the lung bases. The lung bases are otherwise clear. Liver: The contrast-enhanced liver is normal in size, contour, and attenuation. There is no intrahepa tic biliary ductal dilatation. The hepatic veins and portal veins are patent. There is mild periporta l edema. Gallbladder: The gallbladder is distended but otherwise normal in appearance. Spleen: Normal in size and attenuation. There is a calcified splenic granuloma. Pancreas: Unremarkable. Adrenal glands: Unremarkable. Kidneys: The contrast enhanced kidneys are normal in size and without hydronephrosis. The kidneys enh ance symmetrically. Abdominal vasculature: The abdominal aorta is normal in course and caliber noting moderate to advance d atherosclerotic calcification. Bowel: There is rectosigmoid fecal retention and moderate constipation. Mild diffuse wall thickening is seen throughout the colon with surrounding infiltration. The appearance suggest a nonspecific coli tis. There is diverticulosis of the right colon without CT evidence of acute diverticulitis. There ar e several diverticula of the small bowel. Large diverticula of the small bowel are seen on images #1 28 and #148. The appendix is well-visualized and normal. Peritoneum: No intraperitoneal free air is identified. There is trace perihepatic ascites, as well as a small volume of ascites in the pelvis. Lymphadenopathy: None. Pelvic viscera: The prostate gland is enlarged and heterogeneous. The bladder wall appears thickened and trabeculated indicating chronic outlet obstruction. Skeletal structures: The skeletal structures are osteopenic. There is mild lumbosacral spondylosis. N o lytic or blastic lesions are seen. IMPRESSION: 1. There is evidence of a nonspecific pancolitis. Clinical correlation will be required. 2. There is diverticulosis of the small bowel and right colon without CT evidence of acute diverticul itis. 3. Trace abdominopelvic ascites. 4. Cardiomegaly. 5. Hiatal hernia. 6. The gallbladder is distended but otherwise normal in appearance. Correlate with clinical and labor atory findings. 7. Moderate constipation. 8. Additional findings as above. ACT 112: Negative or not required by law. Electronically signed by: Ranulfo Melton M.D. 03/21/2022 8:34 AM
--- NOTE | 2022-03-21 09:38 | Electrocardiogram Report ---
Test Reason : Blood Pressure : / mmHG Vent. Rate : 084 BPM Atrial Rate : 084 BPM P-R Int : 156 ms QRS Dur : 098 ms QT Int : 408 ms P-R-T Axes : 065 -50 058 degrees QTc Int : 482 ms Normal sinus rhythm Left atrial enlargement Left anterior fascicular block Prolonged QT Abnormal ECG When compared with ECG of 02-JAN-2022 10:10, No significant change was found Confirmed by Stu Washington ([id number]) on 03/21/2022 9:38:39 AM Referred By: REFERRED SELF Confirmed By:Stu Washington
--- NOTE | 2022-03-21 09:47 | History & Physical Report ---
Date of Service March 21, 2022 Assessment & Plan (1) Pancolitis: Plan: [place] is a 81-year-old male with a past medical history of A. fib paroxysmal on apixaban, hypertension, BPH who presents with aggressively worsening right upper quadrant pain and diarrhea following eating ham salad on a cracker. He had no preceding pain with fatty foods/diarrhea, his had eaten a ham salad without difficulty the day before but he ate the last of it just prior to symptom onset. He is found to have possible cholecystitis on imaging along with pancolitis. Pancolitis, history suspicious for foodborne enteritis Patient with several hours of progressively worsening abdominal pain following 1 day old ham salad Imaging does show evidence concerning for cholecystitis including gallbladder distention and has right upper quadrant pain Covered empirically with Zosyn for cholecystitis, pending surgical eval for cholecystitis PCR stool panel pending, no history of IBD. Lactate is normal. N.p.o., fluids at this time. If no surgical intervention is anticipated to day, may start clears for the afternoon and n.p.o. at midnight for reassessment Possible cholecystitis Leukocytosis to 15.38 Received Zosyn in ER, continue Sodium, potassium normal Creatinine less than 1 at baseline, admitting creatinine 0.90 T bili 1.2, AST/ALT normal, alk phos mildly elevated; trend COVID-negative - CTA/P: Nonspecific pancolitis, diverticulosis of the small bowel and right colon without diverticulitis. Trace abdominal pelvic ascites? Reactive, gallbladder distended. Moderate constipation. Ultrasound gallbladder: Mildly distended gallbladder, small amount of sludge, no gallstones. Imaging consistent with cholecystitis, story consistent with foodborne enteritis. Surgical consultation pending. HIDA scan deferred pending evaluation Atrial fibrillation on DOAC In sinus with normal rate on admission. Patient reports he has had no recent problems with A. fib or fast rates, golfs in the sun without any palpitations, chest pain, chest pressure or fast heart rate Continue metoprolol 50 mg every morning. Did not take medications this morning, metoprolol ordered DOAC held, pending washout in anticipation of surgery. If delayed past tomorrow morning, resume heparin gtt. tomorrow am Trop normal Daily EKGs, if develops fast rates/A. fib or other concerns can transfer to telemetry BPH with LUTS Continue alfuzosin Bladder scan as needed, no recent difficulty Hypertension Metoprolol as above Normotensive on admission DVT prophylaxis: SCDs, on anticoagulation as above Diet: N.p.o., fluids Disposition: Medical surgical with daily EKGs, if good rate or A. fib can transfer to telemetry. CODE STATUS: Full code. Patient reports that he has considered DNR/DNI in the past, but would want attempts at CPR, chest compressions, medications and intubation in the short-term and feels he is in a reasonable state of health, and understands that if he had a quality of life not consistent with what he would want at that decision would likely follow his family members where he incapacitated or unable to advocate for himself. Expresses that he understands this, and that his wishes are consistent with full code at this time (2) Gallbladder disease: (3) HBP (high blood pressure): (4) Paroxysmal atrial fibrillation: (5) Anticoagulant long-term use: (6) BPH loc w urin obs/LUTS: History of Present Illness Primary Care Provider: Anupam Cohen Jr, DO ER Signout: Overnight RUQ abdominal pain began 1 day ago Hx afib on anticoag Multiple comorbidities No diarrhea, +nausea on presentation. 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 Maday Aleksey --> CT pancolitis ?gallbladder Medicine admit pancolitis, coverage for gallbladder, reasses tomorrow Frieda gave Zosyn. Pancolitis etiology unknown. Nonrigid abdomen. Does not appear ischemic (no blood, lactate pending). - Stool studies ?normal - Stool PCR Hemodynamically stable, looks good in the room,. ___ HPI yesterday after lunch had 4 crackers with ham salad on themand din't feel well. Had a severe stomach ache which rapidly worsened until 2am this morning. Throughout the course of the day went ot the bathroom 3-4 times. Severely nauseus but minimal emesis, nonbloody/nonbilious Suspected food poisoning. RUQ pain, son who is a pharmacist recommended he be seen for evaluation of the gallbladder 2am this mornign pain was so severe he could not take it anymore and came to the ER Currently pain is tolerable. 5/10 at bedside, 9.5-10/10 last night At home took 2x tylenol and had a leftover pain pill from knee surgery but not sure which one and took 1x. Not oxycodone, but doesn't remember the name Previous few weeks no abdominal pain/indigestion/problems with abdomanl pain No bloody/black bowel movements. Darker when he drinks prune juice but no melena/blood No diarrhea in the last few weeks Yesterday went 5x loose but not liquid bowels after crackers No fevers, chills, or sweats No shortness of breath, chest pain, chest pressure no dysuria, does take medicine for retention L knee surgery January 13, doing well. No other recent procedures. No antibiotics after, just perioperative Last took blood thinner at 1030pm last night Did not take his metoprolol this AM Medical History: Reviewed Medications: Reviewed Surgical History: Reviewed Allergies: Reviewed Social History:No current of former tobacco. Rare social alcohol. No medical marijuana or recreational drug use. Code Status: Surrogate DM would be Jania Tanner or daughter Valentine Vaughan. Full code. Allergies Allergy/AdvReac Type Severity Reaction Status Date / Time No Known Drug Allergies Allergy . Verified 02/28/22 10:54 Home Medications Medication Instructions Recorded Confirmed Type atorvastatin 20 mg tablet 20 mg PO HS 02/17/19 03/21/22 History alfuzosin 10 mg tablet,extended 10 mg PO DAILY #30 tabs 01/16/22 03/21/22 Rx release 24 hr apixaban 5 mg tablet (Eliquis) 5 mg PO BID #180 tabs 01/17/22 03/21/22 Rx metoprolol succinate 50 mg 50 mg PO QAM #90 tabs 01/17/22 03/21/22 Rx tablet,extended release 24 hr (Toprol XL) Past Med/Surg History Medical History Atrial fibrillation Eliquis [place] [facility] [place]. 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 NAD. Cooperative. HEENT: Atraumatic, normocephalic. Pulm: CTAB A&P. -wheezes, -rales, -rhonchi. Symmetrical chest rise. No increase in work of breathing. No respiratory distress. Cardiac: RRR, -mrg. Radial pulses intact and symmetrical. Abdominal: Tender to palpation in right upper and right mid quadrant without rebound/guarding. Soft. No left-sided tenderness. Bowel sounds intact. Extremities: [employer] strength, elbow flexion/extension, shoulder flexion/extension, ankle dorsiflexion/plantarflexion intact with 5/5 strength bilaterally. Sensation of soft touch in hands and feet bilaterally. No lower extremity edema. Left knee with well-healed postsurgical incision, some residual edema but no overlying erythema/tenderness. Results & Data Results & Data ([facility]) Vital Signs (Past 12 Hours) Vital Signs Temp Pulse Pulse Resp BP BP Pulse Ox 03/21/22 07:00 85 18 153/88 H 94 03/21/22 05:00 80 20 142/82 H 94 03/21/22 03:16 84 16 148/99 H 96 03/21/22 03:16 84 16 96 03/21/22 02:11 36.7 C 92 H 18 166/91 H 98 O2 Del Method 03/21/22 07:00 Room Air 03/21/22 05:00 Room Air 03/21/22 03:16 Room Air 03/21/22 03:16 Room Air 03/21/22 02:11 Room Air PG Care Time/CCT Total # of Minutes Spent Total Time Spent with Patient: Total time spent is greater than 50% in coordination of care (as documented) at patient's floor/unit and/or counseling patient: Coding Level of Care Code INT OBSERVATION CARE 50M LVL 2 Diagnoses Pancolitis K51.00 Gallbladder disease K82.9 HBP (high blood pressure) I10 Hypertension type: essential hypertension Paroxysmal atrial fibrillation I48.0 Anticoagulant long-term use Z79.01 BPH loc w urin obs/LUTS N40.1 (1) HBP (high blood pressure) Hypertension type: essential hypertension Qualified Code(s): I10 - Essential (primary) hypertension
--- NOTE | 2022-03-21 10:14 | Emergency Department Note ---
ED Visit Note Patient case signed out to me at 0700 hrs. on 03/21/[address] scan of the abdomen and pelvis resulting as well as evaluation by the general surgery service. I did evaluate the patient and he was clinically doing well. He has a benign abdominal examination. No guarding or rigidity. No peritoneal signs. There is no diarrhea. No blood in the stool. CT scan report as below. I did discuss this with the general surgery team, specifically with GERARD Leong. Recommendation was to have the patient medically admitted and treated for the pancolitis and coverage for gallbladder as well. Anticoagulant is to be held for potential operative intervention tomorrow depending on findings. Patient was reevaluated several times and clinically doing well. Case then discussed with the hospitalist service, Dr. Adler. Recommendation was to add on a lactate. This was ordered. I have a low suspicion at this time for ischemic colitis. Please refer to further documentation regarding his stay. CT SCAN OF THE ABDOMEN AND PELVIS WITH IV CONTRAST CLINICAL HISTORY: Upper abdominal pain. COMPARISON STUDY: Abdominal CT dated 12/27/2015. Abdominal ultrasound dated 03/21/2022. TECHNIQUE: Following the IV administration of 94 cc of Optiray 300, CT scan of the abdomen and pelvis is performed from the lung bases to the proximal femora. Images are reviewed in the axial, sagittal, and coronal planes. IV contrast was administered without complication. A dose lowering technique was utilized adhering to the principles of ALARA. CT DOSE: 367.32 mGy.cm FINDINGS: Lung bases: The heart is enlarged and without pericardial effusion. The coronary arteries are densely calcified. There is a small to moderate hiatal hernia. There are scattered calcified granulomas. Dependent atelectasis is noted at the lung bases. The lung bases are otherwise clear. Liver: The contrast-enhanced liver is normal in size, contour, and attenuation. There is no intrahepatic biliary ductal dilatation. The hepatic veins and portal veins are patent. There is mild periportal edema. Gallbladder: The gallbladder is distended but otherwise normal in appearance. Spleen: Normal in size and attenuation. There is a calcified splenic granuloma. Pancreas: Unremarkable. Adrenal glands: Unremarkable. Kidneys: The contrast enhanced kidneys are normal in size and without hydronephrosis. The kidneys enhance symmetrically. Abdominal vasculature: The abdominal aorta is normal in course and caliber noting moderate to advanced atherosclerotic calcification. Bowel: There is rectosigmoid fecal retention and moderate constipation. Mild diffuse wall thickening is seen throughout the colon with surrounding infiltration. The appearance suggest a nonspecific colitis. There is diverticulosis of the right colon without CT evidence of acute diverticulitis. There are several diverticula of the small bowel. Large diverticula of the small bowel are seen on images #128 and #148. The appendix is well-visualized and normal. Peritoneum: No intraperitoneal free air is identified. There is trace perihepatic ascites, as well as a small volume of ascites in the pelvis. Lymphadenopathy: None. Pelvic viscera: The prostate gland is enlarged and heterogeneous. The bladder wall appears thickened and trabeculated indicating chronic outlet obstruction. Skeletal structures: The skeletal structures are osteopenic. There is mild lumbosacral spondylosis. No lytic or blastic lesions are seen. IMPRESSION: 1. There is evidence of a nonspecific pancolitis. Clinical correlation will be required. 2. There is diverticulosis of the small bowel and right colon without CT evidence of acute diverticulitis. 3. Trace abdominopelvic ascites. 4. Cardiomegaly. 5. Hiatal hernia. 6. The gallbladder is distended but otherwise normal in appearance. Correlate with clinical and laboratory findings. 7. Moderate constipation. 8. Additional findings as above. ACT 112: Negative or not required by law. Electronically signed by: Ranulfo Melton M.D. 03/21/2022 8:34 AM .
[2022-03-21] MEDS ORDERED: METOPROLOL SUCC 50MG EXT REL TAB PO STA (10:28)
--- NOTE | 2022-03-21 11:30 | Surgery Consultation ---
Date of Consultation March 21, 2022 Assessment & Plan (1) Gallbladder disease: This is an 81yM with a PMH of afib on eliquis, HTN, BPH, who presented to the [facility] ED on 03/21/22 with complaints of abdominal pain that started yesterday. Patient is located in the RUQ and begain after eating ham salad with crackers for lunch. Work up in the ER with a RUQ US revealed a mildly distended gallbladder which may contain a small amount of sludge. No gallstones. Follow up with a CT a/p showed evidence of a nonspecific pancolitis. The gallbladder is distended but otherwise normal in appearance. WBC 15. Tb: 1.2. Other LFTs unremarkable. Vital signs are stable. On exam patient's abdomen is soft, non distended, with tenderness to palpation in the RUQ. Patient's history and exam consistent with likely gallbladder etiology. Agree with hospitalization to start abx for pancolitis and to cover gallbladder. Appreciate hospitalists admitted patient given medical history. Recommend holding patient's eliquis. We will book patient for laparoscopic/robotic cholecystectomy tomorrow. Patient seen/examined with Dr. Stern. Supervising Physician Co-Signing Physician Notes Patient seen and examined, labs and imaging reviewed, agree with above. 81-year-old male presented with right upper quadrant pain and nausea that started yesterday. Pain became worse overnight and he presented to the emergency department. No prior episodes. No diarrhea. On exam he is afebrile with stable vitals, abdomen soft, tender to palpation in the right upper quadrant with positive Tracy sign. Remainder of abdomen is unremarkable. WBC 15. Ultrasound shows distended gallbladder with sludge but no obvious signs of cholecystitis. CT shows mild pancolitis with distended gallbladder but no pericholecystic fluid or gallbladder wall thickening. Discussed options and patient elects for cholecystectomy. He took his last dose of Eliquis yesterday. Admitted to medicine service, will treat with antibiotics and plan for laparoscopic/robotic cholecystectomy tomorrow. Laparoscopic/robotic cholecystectomy tomorrow in the operating room Hold Eliquis, n.p.o. after midnight Continue antibiotics for pancolitis risks discussed to include but not limited to bleeding, infection, retained stone, bile leak, open surgery, damage to surrounding structures including bile duct, need for future or more extensive surgery, failure to treat symptoms, and risks of anesthesia. History of Present Illness History of Present Illness This is an 81yM with a PMH of afib on eliquis, HTN, BPH, who presented to the [facility] ED on 03/21/22 with complaints of abdominal pain that started yesterday. Patient had ham salad with crackers for lunch and the pain started thereafter. It began in the lower abdomen and then became more prominent and severe in the RUQ/epigastric region. The pain persisted and reported + nausea and he ended up coming in today around 2AM. A RUQ US was obtained that revealed a mildly distended gallbladder which may contain a small amount of sludge. No gallstones. Follow up with a CT a/p showed evidence of a nonspecific pancolitis. The gallbladder is distended but otherwise normal in appearance. Patient has a history of inguinal hernia repair, but no abdominal surgical history. He last took his eliquis yesterday evening. Allergies Allergy/AdvReac Type Severity Reaction Status Date / Time No Known Drug Allergies Allergy . Verified 02/28/22 10:54 Home Medications Medication Instructions Recorded Confirmed Type atorvastatin 20 mg tablet 20 mg PO HS 02/17/19 03/21/22 History alfuzosin 10 mg tablet,extended 10 mg PO DAILY #30 tabs 01/16/22 03/21/22 Rx release 24 hr apixaban 5 mg tablet (Eliquis) 5 mg PO BID #180 tabs 01/17/22 03/21/22 Rx metoprolol succinate 50 mg 50 mg PO QAM #90 tabs 01/17/22 03/21/22 Rx tablet,extended release 24 hr (Toprol XL) Patient History Medical History Atrial fibrillation Eliquis Follows [place] [facility] [place] (Dr. 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 Beliefs That Will Affect Care: None marital status: Life Partner Current Living Situation: Significant Other Current Living Situation Comment: " [facility]" IN [place] WINTER MONTHS TILL LATE NOVEMBER EACH YR current occupational status: retired Feels Safe at Home: Yes Assistive Devices: Walker Review of Systems Constitutional: no fever and no chills Respiratory: no dyspnea Gastrointestinal: + abdominal pain, + nausea and + diarrhea/loose stools; no vomiting Physical Exam Physical Exam: awake/alert Respiratory: normal respiratory effort Gastrointestinal (Abdomen): Inspection/Auscultation: abdomen not distended Percussion/Palpation: + abdomen tender (in RUQ) and abdomen soft Results & Data ([facility]) Vital Signs (Past 12 Hours) Vital Signs Temp Pulse Pulse Resp BP BP Pulse Ox 03/21/22 10:00 85 18 135/80 95 03/21/22 07:00 85 18 153/88 H 94 03/21/22 05:00 80 20 142/82 H 94 03/21/22 03:16 84 16 148/99 H 96 03/21/22 03:16 84 16 96 03/21/22 02:11 36.7 C 92 H 18 166/91 H 98 O2 Del Method 03/21/22 10:00 Room Air 03/21/22 07:00 Room Air 03/21/22 05:00 Room Air 03/21/22 03:16 Room Air 03/21/22 03:16 Room Air 03/21/22 02:11 Room Air Diagnostic Findings ABDOMINAL ULTRASOUND, RIGHT UPPER QUADRANT HISTORY: Right upper quadrant pain.. COMPARISON: Abdomen and pelvis CT 12/27/2015. FINDINGS: Pancreas: Obscured by overlying bowel gas. Liver: Unremarkable. Gallbladder: No gallbladder wall thickening. No gallstones. Mildly distended. Small amount of sludge within the gallbladder versus artifact. CBD: 4 mm. Right kidney: No hydronephrosis. IMPRESSION: 1. Mildly distended gallbladder which may contain a small amount of sludge. No gallstones. 2. Normal liver. 3. The pancreas was obscured by overlying bowel gas. ACT 112: Negative or not required by law. Electronically signed by: Tristen Gonzalez M.D. 03/21/2022 7:[address] SCAN OF THE ABDOMEN AND PELVIS WITH IV CONTRAST CLINICAL HISTORY: Upper abdominal pain. COMPARISON STUDY: Abdominal CT dated 12/27/2015. Abdominal ultrasound dated 03/21/2022. TECHNIQUE: Following the IV administration of 94 cc of Optiray 300, CT scan of the abdomen and pelvis is performed from the lung bases to the proximal femora. Images are reviewed in the axial, sagittal, and coronal planes. IV contrast was administered without complication. A dose lowering technique was utilized adhering to the principles of ALARA. CT DOSE: 367.32 mGy.cm FINDINGS: Lung bases: The heart is enlarged and without pericardial effusion. The coronary arteries are densely calcified. There is a small to moderate hiatal hernia. There are scattered calcified granulomas. Dependent atelectasis is noted at the lung bases. The lung bases are otherwise clear. Liver: The contrast-enhanced liver is normal in size, contour, and attenuation. There is no intrahepatic biliary ductal dilatation. The hepatic veins and portal veins are patent. There is mild periportal edema. Gallbladder: The gallbladder is distended but otherwise normal in appearance. Spleen: Normal in size and attenuation. There is a calcified splenic granuloma. Pancreas: Unremarkable. Adrenal glands: Unremarkable. Kidneys: The contrast enhanced kidneys are normal in size and without hy dronephrosis. The kidneys enhance symmetrically. Abdominal vasculature: The abdominal aorta is normal in course and caliber noting moderate to advanced atherosclerotic calcification. Bowel: There is rectosigmoid fecal retention and moderate constipation. Mild diffuse wall thickening is seen throughout the colon with surrounding infiltration. The appearance suggest a nonspecific colitis. There is diverticulosis of the right colon without CT evidence of acute diverticulitis. There are several diverticula of the small bowel. Large diverticula of the small bowel are seen on images #128 and #148. The appendix is well-visualized and normal. Peritoneum: No intraperitoneal free air is identified. There is trace perihepatic ascites, as well as a small volume of ascites in the pelvis. Lymphadenopathy: None. Pelvic viscera: The prostate gland is enlarged and heterogeneous. The bladder wall appears thickened and trabeculated indicating chronic outlet obstruction. Skeletal structures: The skeletal structures are osteopenic. There is mild lumbosacral spondylosis. No lytic or blastic lesions are seen. IMPRESSION: 1. There is evidence of a nonspecific pancolitis. Clinical correlation will be required. 2. There is diverticulosis of the small bowel and right colon without CT evidence of acute diverticulitis. 3. Trace abdominopelvic ascites. 4. Cardiomegaly. 5. Hiatal hernia. 6. The gallbladder is distended but otherwise normal in appearance. Correlate with clinical and laboratory findings. 7. Moderate constipation. 8. Additional findings as above. ACT 112: Negative or not required by law. Electronically signed by: Ranulfo Melton M.D. 03/21/2022 8:34 AM PG Care Time/CCT Total # of Minutes Spent Total Time Spent with Patient: Total time spent is greater than 50% in coordination of care (as documented) at patient's floor/unit and/or counseling patient: Coding Level of Care Code 76978 Initial Inpt Care Lvl 1 Diagnoses Gallbladder disease K82.9
[2022-03-21] MEDS ORDERED: HYDROmorphone INJ 0.5 MG/0.5 ML SYR IV PRN (11:51)
[2022-03-21] MEDS ORDERED: ONDANSETRON INJ 2 MG/ML 2 ML VIAL IV PRN (11:51)
[2022-03-21] MEDS ORDERED: POLYETHYLENE (MIRALAX) 17 GM PACK PO PRN (11:51)
[2022-03-21] MEDS ORDERED: ACETAMINOPHEN 1000 MG/100 ML IV IV PRN (11:51)
[2022-03-21] MEDS: LACTATED RINGER'S 1,000 ML IV SCH ×2 (12:56→22:29)
[2022-03-21] MEDS: PIPERACILLIN/TAZOBACTAM 3.375 GM in DEXTROSE 5% 100 ML IV SCH ×2 (13:48→22:56)
[2022-03-21] MEDS: HEPARIN SOD 5,000 UNIT/0.5 ML VIAL SQ SCH (21:37)
[2022-03-21] MEDS: ATORVASTATIN 20 MG TAB PO SCH (21:37)
[2022-03-22] MEDS: ACETAMINOPHEN 325 MG TAB PO PRN (02:57)
[2022-03-22] MEDS: PIPERACILLIN/TAZOBACTAM 3.375 GM in DEXTROSE 5% 100 ML IV SCH ×3 (05:43→21:25)
[2022-03-22 06:56] LABS: Basophils # (auto) 0.03 K/uL (0-0.2); Basophils % (auto) 0.1 %; Hematocrit (blood only) 39.4 % (40.1-51.0); Hemoglobin 13.7 g/dl (14.0-18.0); Immature Granulocytes # (auto) 0.57 K/uL (0.00-0.02); Immature Granulocytes % (auto) 2.8 %; Lymphocytes # (auto) 0.68 K/uL (1.2-3.4); Lymphocytes % (auto) 3.4 %; Mean Corpuscular Hemoglobin 32.7 pg (25.0-34.0); Mean Corpuscular Hgb Conc 34.8 g/dL (32.0-36.0); Mean Platelet Volume 9.2 fL (9.4-12.4); Monocytes # (auto) 1.08 K/uL (0.24-0.82); Monocytes % (auto) 5.4 %; Neutrophils # (auto) 17.82 K/uL (1.4-6.5); Neutrophils % (auto) 88.3 %; Platelet Count 136 K/uL (130-400); RDW Coefficient of Variation 12.5 % (11.5-14.5); RDW Standard Deviation 43.7 fL (36.4-46.3); Red Blood Count 4.19 M/uL (4.63-6.08); White Blood Count 20.18 K/ul (4.8-10.8)
[2022-03-22 07:32] LABS: Albumin Level 3.3 gm/dl (3.4-5.0); BUN Creatinine Ratio 24.7 (10-20); Bilirubin Direct 0.3 mg/dl (0-0.2); Bilirubin,Total 1.4 mg/dl (0.2-1.0); Calcium 8.5 mg/dl (8.5-10.1); Creatinine Clr Calc Pharmacy 78.5 ml/min; Est GFR (African American) 96.6 ml/min; Est GFR (Non-African American) 83.4 ml/min; Magnesium 1.5 mg/dl (1.7-2.4); Potassium 3.3 mmol/L (3.5-5.1); Total Protein 5.5 gm/dl (6.0-8.3)
--- NOTE | 2022-03-22 07:32 | Anesthesiology Consultation ---
Date of Service March 22, 2022 Assessment & Plan (1) Encounter for pre-operative examination: Chart Review Chart Review: Acceptable Risk for Surgery and Patient NOT seen in Pre Admission Testing Consults Requested none History Surgery Operation Date: 03/22/22 13:25 Proposed Procedures p Robotic assisted Laparoscopic Cholecystectomy - Enrrique Stern DO, FACS Height/Weight Height: 6 ft Weight: 79.9 kg Allergies Allergy/AdvReac Type Severity Reaction Status Date / Time No Known Drug Allergies Allergy . Verified 02/28/22 10:54 Medications Home Medications Medication Instructions Recorded Confirmed Last Taken atorvastatin 20 mg tablet 20 mg PO HS 02/17/19 03/21/22 03/20/22 23:00 alfuzosin 10 mg tablet,extended 10 mg PO DAILY #30 tabs 01/16/22 03/21/22 03/19/22 release 24 hr apixaban 5 mg tablet (Eliquis) 5 mg PO BID #180 tabs 01/17/22 03/21/22 03/20/22 metoprolol succinate 50 mg 50 mg PO QAM #90 tabs 01/17/22 03/21/22 03/20/22 tablet,extended release 24 hr (Toprol XL) Active Medications Generic Name Dose Route Start Last Admin Trade Name Freq PRN Reason Stop Dose Admin Acetaminophen 650 mg 03/21/22 11:51 03/22/22 02:57 Acetaminophen 325 Mg Tab PO 04/20/22 11:50 650 mg Q4H PRN Administration pain/fever Atorvastatin Calcium 20 mg 03/21/22 21:00 03/21/22 21:37 Atorvastatin 20 Mg Tab PO 04/20/22 20:59 20 mg HS ANTWON Administration Heparin Sodium (Porcine) 5,000 units 03/21/22 21:00 03/21/22 21:37 Heparin Sod 5,000 Unit/0.5 Ml Vial SQ 04/20/22 20:59 5,000 units Q12 ANTWON Administration Piperacillin Sod/Tazobactam 115 mls @ 28.75 mls/hr 03/21/22 14:00 03/22/22 05:43 Sod 3.375 gm/ Dextrose IV 03/31/22 13:59 28.8 mls/hr Q8H ANTWON Administration Protocol Lactated Ringer's 1,000 mls @ 90 mls/hr 03/21/22 11:51 03/21/22 22:29 Lr IV 04/20/22 11:50 90 mls/hr .[id number] ANTWON Administration Past Medical History Medical History Atrial fibrillation Eliquis Follows with [facility] (Dr. Alexander) History of kidney stones History of skin cancer Hyperlipidemia Osteoarthritis Past Family History Family History Father Stroke Past Surgical History Surgical History H/O elbow surgery LEFT History of cataract surgery RT/LEFT History of colonoscopy History of herniorrhaphy INGUINAL History of lithotripsy History of tooth extraction Hx of prostate biopsy Social History Smoking Status: Never smoker Do You Dip or Chew Tobacco: No Hx Alcohol Use: Yes Alcohol type: beer and wine alcohol intake frequency: holidays/special occasions only Hx Substance Use: No substance use type: does not use Physical Exam Vital Signs Last Vital Signs Temp 36.9 C 03/21/22 15:38 Pulse 86 03/22/22 06:00 Resp 18 03/22/22 06:00 BP 127/75 03/22/22 06:00 Pulse Ox 93 03/22/22 06:00 O2 Del Method 03/22/22 06:00 Testing Laboratory Results 03/22/22 06:27 Urine Color Yellow 03/21/22 02:50 Urine Appearance Clear (Clear) 03/21/22 02:50 Urine pH 7.5 (4.5-7.5) 03/21/22 02:50 Ur Specific [place] 1.029 (1.000-1.030) 03/21/22 02:50 Urine Protein Trace (Negative) H 03/21/22 02:50 Urine Glucose (UA) Negative (Negative) 03/21/22 02:50 Urine Ketones 3+ (Negative) H 03/21/22 02:50 Urine Nitrite Negative (Negative) 03/21/22 02:50 Ur Leukocyte Esterase Trace (Negative) H 03/21/22 02:50 Urine WBC (Auto) 5-10 /hpf (0-5) H 03/21/22 02:50 Urine RBC (Auto) 0-4 /hpf (0-4) 03/21/22 02:50 U Hyaline Cast (Auto) 1-5 /lpf (0-5) 03/21/22 02:50 U Epithel Cells (Auto) 10-20 /lpf (0-5) H 03/21/22 02:50 Urine Bacteria (Auto) Negative (Negative) 03/21/22 02:50 Electrocardiogram Date: 03/21/22 Test Reason : Blood Pressure : / mmHG Vent. Rate : 084 BPM Atrial Rate : 084 BPM P-R Int : 156 ms QRS Dur : 098 ms QT Int : 408 ms P-R-T Axes : 065 -50 058 degrees QTc Int : 482 ms Normal sinus rhythm Left atrial enlargement Left anterior fascicular block Prolonged QT Abnormal ECG When compared with ECG of 02-JAN-2022 10:10, No significant change was found Confirmed by Stu Washington ([id number]) on 03/21/2022 9:38:39 AM Referred By: REFERRED SELF Confirmed By:Stu Washington Other Testing CT SCAN OF THE ABDOMEN AND PELVIS WITH IV CONTRAST CLINICAL HISTORY: Upper abdominal pain. COMPARISON STUDY: Abdominal CT dated 12/27/2015. Abdominal ultrasound dated 03/21/2022. TECHNIQUE: Following the IV administration of 94 cc of Optiray 300, CT scan of the abdomen and pelvis is performed from the lung bases to the proximal femora. Images are reviewed in the axial, sagittal, and coronal planes. IV contrast was administered without complication. A dose lowering technique was utilized adher ing to the principles of ALARA. CT DOSE: 367.32 mGy.cm FINDINGS: Lung bases: The heart is enlarged and without pericardial effusion. The coronary arteries are densely calcified. There is a small to moderate hiatal hernia. There are scattered calcified granulomas. Dependent atelectasis is noted at the lung bases. The lung bases are otherwise clear. Liver: The contrast-enhanced liver is normal in size, contour, and attenuation. There is no intrahepatic biliary ductal dilatation. The hepatic veins and portal veins are patent. There is mild periportal edema. Gallbladder: The gallbladder is distended but otherwise normal in appearance. Spleen: Normal in size and attenuation. There is a calcified splenic granuloma. Pancreas: Unremarkable. Adrenal glands: Unremarkable. Kidneys: The contrast enhanced kidneys are normal in size and without hydronephrosis. The kidneys enhance symmetrically. Abdominal vasculature: The abdominal aorta is normal in course and caliber noting moderate to advanced atherosclerotic calcification. Bowel: There is rectosigmoid fecal retention and moderate constipation. Mild diffuse wall thickening is seen throughout the colon with surrounding infiltration. The appearance suggest a nonspecific colitis. There is diverticulosis of the right colon without CT evidence of acute diverticulitis. There are several diverticula of the small bowel. Large diverticula of the small bowel are seen on images #128 and #148. The appendix is well-visualized and normal. Peritoneum: No intraperitoneal free air is identified. There is trace perihepatic ascites, as well as a small volume of ascites in the pelvis. Lymphadenopathy: None. Pelvic viscera: The prostate gland is enlarged and heterogeneous. The bladder wall appears thickened and trabeculated indicating chronic outlet obstruction. Skeletal structures: The skeletal structures are osteopenic. There is mild lumbosacral spondylosis. No lytic or blastic lesions are seen. IMPRESSION: 1. There is evidence of a nonspecific pancolitis. Clinical correlation will be required. 2. There is diverticulosis of the small bowel and right colon without CT evidence of acute diverticulitis. 3. Trace abdominopelvic ascites. 4. Cardiomegaly. 5. Hiatal hernia. 6. The gallbladder is distended but otherwise normal in appearance. Correlate with clinical and laboratory findings. 7. Moderate constipation. 8. Additional findings as above. ACT 112: Negative or not required by law. Electronically signed by: Ranulfo Melton M.D. 03/21/2022 8:34 AM
--- NOTE | 2022-03-22 08:54 | Electrocardiogram Report ---
Test Reason : Blood Pressure : / mmHG Vent. Rate : 083 BPM Atrial Rate : 083 BPM P-R Int : 154 ms QRS Dur : 094 ms QT Int : 384 ms P-R-T Axes : 050 -49 013 degrees QTc Int : 451 ms Poor data quality, interpretation may be adversely affected Normal sinus rhythm Left anterior fascicular block Abnormal ECG When compared with ECG of 21-MAR-2022 03:20, No significant change was found Confirmed by Stu Washington ([id number]) on 03/22/2022 8:54:15 AM Referred By: REFERRED SELF Confirmed By:Stu Washington
[2022-03-22] MEDS ORDERED: METOPROLOL SUCC 50MG EXT REL TAB PO SCH (09:00)
[2022-03-22] MEDS: HEPARIN SOD 5,000 UNIT/0.5 ML VIAL SQ SCH (09:07)
[2022-03-22] MEDS: LACTATED RINGER'S 1,000 ML IV SCH (10:05)
[2022-03-22] MEDS ORDERED: INDOCYANINE GREEN 25 MG VIAL INJ ONE (11:10)
--- NOTE | 2022-03-22 11:10 | Surgery Progress Note ---
Date of Service March 22, 2022 Assessment & Plan (1) Acute cholecystitis: Plan: 81-year-old male with suspected acute cholecystitis, less likely colitis. Plan laparoscopic/robotic cholecystectomy, possible cholangiogram risks discussed to include but not limited to bleeding, infection, retained stone, bile leak, open surgery, damage to surrounding structures including bile duct, need for future or more extensive surgery, failure to treat symptoms, and risks of anesthesia. Admission and Anticipated Discharge Date Admission Date: March 21, 2022 Subjective 81-year-old male admitted with suspected cholecystitis. Still with right upper quadrant pain though improving. No nausea. Had a normal bowel movement today. Review of Systems Review of Systems: All systems reviewed & are unremarkable except as noted in HPI & below Physical Exam Constitutional: WD/WN, vitals as above Respiratory: normal respiratory effort, lungs clear to auscultation Cardiovascular: RRR, no murmur, no edema Gastrointestinal (Abdomen): Percussion/Palpation: + abdomen tender (Tender to palpation in right upper quadrant) and abdomen soft; no guarding and abdomen not rigid Results & Data ([facility]) Vital Signs (Past 12 Hours) Vital Signs Pulse Resp BP Pulse Ox O2 Del Method 03/22/22 10:00 76 20 116/68 93 Room Air 03/22/22 07:00 80 20 133/68 95 Room Air 03/22/22 06:00 86 18 127/75 93 Room Air Laboratory Results Laboratory Results - last 24 hr 03/22/22 03/22/22 06:27 06:27 WBC 20.18 H RBC 4.19 L Hgb 13.7 L Hct 39.4 L MCV 94.0 MCH 32.7 MCHC 34.8 RDW Std Deviation 43.7 RDW Coeff of Marie 12.5 Plt Count 136 MPV 9.2 L Immature Gran % (Auto) 2.8 Neut % (Auto) 88.3 Lymph % (Auto) 3.4 [place] % (Auto) 5.4 Eos % (Auto) 0.0 Baso % (Auto) 0.1 Neut # (Auto) 17.82 H Lymph # (Auto) 0.68 L [place] # (Auto) 1.08 H Eos # (Auto) 0.00 Baso # (Auto) 0.03 Immature Gran # (Auto) 0.57 H Sodium 132 L Potassium 3.3 L Chloride 102 Carbon Dioxide 24 Anion Gap 6 BUN 20 Creatinine 0.81 Est Cr Clr Drug Dosing 78.5 Est GFR ( Amer) 96.6 Est GFR (Non-Af Amer) 83.4 BUN/Creatinine Ratio 24.7 H Glucose 137 H Calcium 8.5 Magnesium 1.5 L Total Bilirubin 1.4 H Direct Bilirubin 0.3 H AST 17 ALT 24 Alkaline Phosphatase 80 Total Protein 5.5 L Albumin 3.3 L PG Care Time/CCT Total # of Minutes Spent Total Time Spent with Patient: Total time spent is greater than 50% in coordination of care (as documented) at patient's floor/unit and/or counseling patient: Coding Level of Care Code 16875 Inpt Consult Level 2 Diagnoses Acute cholecystitis K81.0
[2022-03-22] MEDS ORDERED: PROPOFOL IV EMULSION 10 MG/ML 20 ML VIAL IV ONE (11:39)
[2022-03-22] MEDS ORDERED: DEXAMETHASONE SOD INJ 4 MG/ML VIAL ONE (11:39)
[2022-03-22] MEDS ORDERED: fentaNYL citrate 100 MCG/2 ML VIAL ONE (11:39)
[2022-03-22] MEDS ORDERED: LIDOCAINE 2% MPF LOCAL 5 ML VIAL INFIL ONE (11:39)
[2022-03-22] MEDS ORDERED: ONDANSETRON INJ 2 MG/ML 2 ML VIAL ONE (11:39)
[2022-03-22] MEDS ORDERED: ROCURONIUM BROMIDE 10 MG/ML 5 ML VIAL IV ONE (11:39)
[2022-03-22] MEDS: PANTOprazole 40 MG in SYRINGE 0 ML IV SCH (11:48)
[2022-03-22] MEDS ORDERED: fentaNYL citrate 100 MCG/2 ML VIAL IV PRN (12:32)
[2022-03-22] MEDS ORDERED: ONDANSETRON INJ 2 MG/ML 2 ML VIAL IV PRN (12:32)
[2022-03-22] MEDS ORDERED: ATROPINE SULFATE 0.1 MG/ML 10ML SYR IV PRN (12:32)
[2022-03-22] MEDS ORDERED: ePHEDrine sulfate 50 MG/ML AMP IV PRN (12:32)
[2022-03-22] MEDS ORDERED: BUPIVACAINE 0.5 % 5 MG/1 ML MPF 30ML VIAL ONE (12:39)
[2022-03-22] MEDS ORDERED: PHENYLEPHRINE 100MCG/ML 5ML SYR ONE (13:20)
[2022-03-22] MEDS ORDERED: ePHEDrine sulfate 50 MG/ML SYR ONE (13:20)
--- NOTE | 2022-03-22 14:16 | Operative Report ---
PG Post Operative Report Pre & Post Diagnosis Operation Date: 03/22/22 13:25 Pre-Op Diagnosis: Acute cholecystitis Post-Op Diagnosis: Acute gangrenous Cholecystitis I identified the patient and participated in the time-out.: Yes Procedure Operation Date: 03/22/22 13:25 Actual Procedures p Robotic assisted Laparoscopic Cholecystectomy(Not Applicable) - Enrrique Stern DO, GUILLERMINA Surgeon Enrrique Stern DO, GUILLERMINA Front End Manager Maday Ryder Estimated Blood Loss 15 Findings Consistent with Post-Op Diagnosis Gangrenous cholecystitis. Omental adhesions taken down. Gallbladder decompressed. Critical view of safety obtained, cystic duct and artery doubly clipped and divided. Specimens Gallbladder Anesthesia Type General Complications none Disposition Accompanied Patient To Recovery: No Disposition: Recovery Room Indications 81-year-old male with signs and symptoms of acute cholecystitis, plan for laparoscopic/robotic cholecystectomy possible cholangiogram. The risks of the procedure were discussed, all questions were answered, and the patient agreed to proceed with surgery as planned. Description of Procedure The patient was properly identified, consented, and taken to the operating room where he was placed in the supine position. 2.5 mg of indocyanine green were administered IV approximately 45 min prior to the surgery. General endotracheal anesthesia was induced. SCDs and a safety belt were placed. Preoperative antibiotics were administered. The patient's abdomen was prepped and draped in the standard sterile fashion. A surgical timeout was performed and all parties were in agreement that this was the correct patient and procedure to be performed and we continued as planned. An incision was made just above the umbilicus and to the right of midline. Veress needle was inserted and saline drop test confirmed entry to the abdomen. The abdomen was insufflated with carbon dioxide which the patient tolerated incident. Veress needle was removed and the abdomen is entered using the Optiview technique and a 5 mm camera. The introducer was removed and the abdomen inspected. No damage from initial trocar placement or Veress needle placement was identified. There were no significant abnormalities to the 4 quadrants of the abdomen. 8 mm robotic ports were then placed on the left and right. An additional 5 mm clinical lab assistant port was placed in the lateral right subcostal position. The patient was placed in reverse Trendelenburg position and rotated towards the left. The robot was then docked and the camera and robotic instruments were inserted. The gallbladder was encased in omental adhesions and these were taken down with blunt dissection. The gallbladder was acutely inflamed and very distended and the wall appeared gangrenous. Cautery was used to make a small hole in the dome of the gallbladder and the contents of the gallbladder were suctioned to allow for decompression and better retraction. The dome of the gallbladder was grasped by the clinical lab assistant and retracted towards the left upper quadrant and the infundibulum was retracted toward the right lower quadrant revealing Calot's triangle. Peritoneal attachments were taken down with electrocautery and blunt dissection. The cystic duct and artery were circumferentially dissected. A window of safety was obtained showing the cystic duct entering the gallbladder with no aberrant structures noted. ICG had been injected, however the gallbladder was not filling indicating acute cholecystitis. The cystic duct and artery were doubly clipped and divided. The gallbladder was then lifted off the gallbladder fossa with electrocautery. The right upper quadrant was irrigated copiously and hemostasis was found to be good. The gallbladder was placed in an Endo Catch bag and removed through the one of the port sites. The instruments were removed and the robot was undocked. The trochars were removed and the abdomen was allowed to collapse. The skin of all ports was closed with 4-0 Monocryl subcuticular sutures. Dermabond was placed over the wounds. The patient was extubated in the operating room and taken to the PACU where he recovered without apparent incident. All sponge, instrument and needle counts were correct at the conclusion of the procedure. The patient tolerated the procedure well. He will be continued on antibiotics. He was started on clear liquids we will continue to hold his Eliquis. Patient will be sent to PCU as he may have a SIRS response following surgery. The physician's clinical lab assistant was present and scrubbed for the entirety of the case and was essential in positioning the patient, prepping and draping, retraction and exposure, driving the laparoscope, exchange of the robotic instruments removal of the gallbladder, closure of the incisions, and placement of the dressings. I attest to the content of the Intraoperative Record and any orders documented therein. Any exceptions are noted below.
--- NOTE | 2022-03-22 14:46 | Hospitalist Progress Note ---
Date of Service March 22, 2022 Assessment & Plan (1) Pancolitis: Plan: suspicious for foodborne enteritis per admission evaluation. Will reassess symptoms after cholecystectomy for gangrenous cholecystitis. Continue Zosyn. Stool studies pending. (2) Gallbladder disease: Plan: Acute gangrenous cholecystitis found at the time of laparoscopic cholecystectomy today. Continue Zosyn. Surgery states he is allowed clear liquids. Continue IV fluids for now. (3) HBP (high blood pressure): Plan: Stable. Medical management (4) Paroxysmal atrial fibrillation: Plan: Currently in normal sinus rhythm. Eliquis on hold. Continue metoprolol. Telemetry (5) Anticoagulant long-term use: Plan: Eliquis stopped on admission. Will restart when cleared by surgery (6) BPH loc w urin obs/LUTS: Plan: Medical management Plan Eventual discharge back to home Admission and Anticipated Discharge Date Admission Date: March 21, 2022 Subjective The patient was seen in the PACU postoperatively. He was found to have an acute gangrenous cholecystitis which was removed. He is extubated but not able to converse. He has on IV fluids and Zosyn. Review of Systems Review of Systems: The patient is currently unable to answer any questions regarding review of systems Physical Exam Physical Exam: General-lethargic postoperatively but extubated. Not able to converse at this time HEENT-head atraumatic and normocephalic, pupils equal and reactive to light, extraocular muscles intact Neck-no lymphadenopathy or thyromegaly, trachea midline Chest-clear anteriorly. Cardiac-regular rate and rhythm, normal S1 and S2 Abdomen-absent bowel sounds postoperatively as expected. Slightly distended from laparoscopic cholecystectomy that was just completed. Extremities-no cyanosis, clubbing, or edema Neuro-moving all extremities randomly. Lethargic postanesthesia. Psych-cannot assess at this time Results & Data Results & Data ([facility]) Vital Signs (Past 12 Hours) Vital Signs Temp Pulse Resp BP Pulse Ox O2 Del Method 03/22/22 12:17 36.8 C 77 16 150/75 H 95 Room Air 03/22/22 10:00 76 20 116/68 93 Room Air 03/22/22 07:00 80 20 133/68 95 Room Air 03/22/22 06:00 86 18 127/75 93 Room Air Laboratory Results 03/22/22 06:27 03/22/22 06:27 03/22/22 06:27 03/22/22 06:27 PG Care Time/CCT Total # of Minutes Spent Total Time Spent with Patient: Total time spent is greater than 50% in coordination of care (as documented) at patient's floor/unit and/or counseling patient: Coding Level of Care Code 49308 Subseq Hosp Care Lvl 3 Diagnoses Pancolitis K51.00 Gallbladder disease K82.9 HBP (high blood pressure) I10 Hypertension type: essential hypertension Paroxysmal atrial fibrillation I48.0 Anticoagulant long-term use Z79.01 BPH loc w urin obs/LUTS N40.1 (1) HBP (high blood pressure) Hypertension type: essential hypertension Qualified Code(s): I10 - Essential (primary) hypertension
--- NOTE | 2022-03-22 15:05 | Anesthesiology Progress Note ---
Date of Service March 22, 2022 Anesthesia Post Procedure Vital Signs Vital Signs: Temp Pulse Resp BP Pulse Ox O2 Del Method O2 Flow Rate 03/22/22 14:50 78 26 H 149/84 H 94 Oxymask 5 03/22/22 15:00 82 21 137/88 93 Room Air 03/22/22 14:40 76 27 H 150/82 H 96 Oxymask 7 03/22/22 14:30 98.2 F 82 26 H 131/96 95 Oxymask 10 03/22/22 12:17 98.2 F 77 16 150/75 H 95 Room Air 03/22/22 10:00 76 20 116/68 93 Room Air 03/22/22 07:00 80 20 133/68 95 Room Air 03/22/22 06:00 86 18 127/75 93 Room Air 03/21/22 21:27 80 20 127/86 93 Room Air 03/21/22 15:38 98.4 F 85 20 128/73 96 Room Air Pain Intensity Right Upper Abdomen: Pain Intensity: 4 Transfer of Care Handoff Completed per policy Notes Mental Status: alert / awake / arousable and participated in evaluation Patient Amnestic to Procedure: Yes Nausea / Vomiting: adequately controlled Pain: adequately controlled Airway Patency, RR, SpO2: stable & adequate BP & HR: stable & adequate Hydration State: stable & adequate Anesthetic Complications: no major complications apparent and Pt Satisfied with anesthetic care
[2022-03-22] MEDS ORDERED: MoRPHine SULFATE 4 MG/ML 1 ML CARP\\VIAL IV PRN (16:53)
[2022-03-22] MEDS ORDERED: MoRPHine SULFATE 2 MG/ML CARP IV PRN (16:53)
[2022-03-22] MEDS: NSS + 20MEQ KCL 20 MEQ/1,000 ML BAG IV SCH (18:28)
[2022-03-22] MEDS: ATORVASTATIN 20 MG TAB PO SCH (21:23)
[2022-03-23] MEDS: PIPERACILLIN/TAZOBACTAM 3.375 GM in DEXTROSE 5% 100 ML IV SCH ×3 (05:41→21:36)
[2022-03-23] MEDS: ACETAMINOPHEN 325 MG TAB PO PRN (05:42)
[2022-03-23 06:46] LABS: Mean Corpuscular Hemoglobin 32.6 pg (25.0-34.0); Mean Corpuscular Hgb Conc 34.2 g/dL (32.0-36.0); Mean Corpuscular Volume 95.2 fL (80.0-100.0); Mean Platelet Volume 9.3 fL (9.4-12.4); Platelet Count 112 K/uL (130-400); RDW Coefficient of Variation 12.5 % (11.5-14.5); RDW Standard Deviation 43.8 fL (36.4-46.3); Red Blood Count 3.99 M/uL (4.63-6.08); White Blood Count 13.91 K/ul (4.8-10.8)
[2022-03-23 07:12] LABS: Basophils # (auto) 0.02 K/uL (0-0.2); Basophils % (auto) 0.1 %; Dohle Bodies 1+; Echinocytes 3+; Immature Granulocytes # (auto) 0.22 K/uL (0.00-0.02); Immature Granulocytes % (auto) 1.6 %; Lymphocytes # (auto) 0.48 K/uL (1.2-3.4); Lymphocytes % (auto) 3.5 %; Monocytes # (auto) 0.57 K/uL (0.24-0.82); Monocytes % (auto) 4.1 %; Neutrophils # (auto) 12.62 K/uL (1.4-6.5); Neutrophils % (auto) 90.7 %; Poikilocytosis Present; Toxic Vacuolation 1+
[2022-03-23 07:23] LABS: Albumin Level 2.9 gm/dl (3.4-5.0); BUN Creatinine Ratio 23.3 (10-20); Bilirubin Direct 0.3 mg/dl (0-0.2); Calcium 8.6 mg/dl (8.5-10.1); Creatinine Clr Calc Pharmacy 73.9 ml/min; Est GFR (African American) 94.3 ml/min; Est GFR (Non-African American) 81.3 ml/min; Magnesium 1.7 mg/dl (1.7-2.4); Potassium 3.6 mmol/L (3.5-5.1); Total Protein 5.3 gm/dl (6.0-8.3)
[2022-03-23] MEDS: NSS + 20MEQ KCL 20 MEQ/1,000 ML BAG IV SCH ×2 (07:52→18:34)
[2022-03-23] MEDS ORDERED: oxyCODONE HCL IR 5 MG TAB (IMMEDIATE RELEASE) PO PRN ×2 (08:30)
--- NOTE | 2022-03-23 08:38 | Surgery Progress Note ---
Date of Service March 23, 2022 Assessment & Plan (1) Acute cholecystitis: Plan: gangrenous rodolfo WBC 13, LFTs normalized keep on Zosyn diet as harrison will discuss anticoagulation with Dr. Stern Admission and Anticipated Discharge Date Admission Date: March 21, 2022 Supervising Physician Co-Signing Physician Notes Patient S&E, agree with above. POD#1 robotic cholecystectomy for gangrenous cholecystitis. Feeling bloated, no flatus. Vomited while in room. Sore, but no pain. In Afib. afebrile, bp stable. abd soft, appropriately ttp. incisions w/o infection. wbc 13, lft normal. Likely SIRS response and ileus given gangrenous cholecystitis. NPO, ivf's, cont iv abx. if persistent vomiting may need KUB and ng tube. await return of bowel function. Likely restart oral anticoag tomorrow, may give dvt prophy today. Subjective incisions sore, felt conversion to A-fib last night, not much appetite Physical Exam Gastrointestinal (Abdomen): Inspection/Auscultation: + abdominal surgical incision (dry); abdomen not distended Percussion/Palpation: abdomen soft Results & Data ([facility]) Vital Signs (Past 12 Hours) Vital Signs Temp Pulse Resp BP Pulse Ox O2 Del Method 03/23/22 07:29 36.7 C 112 H 18 99/61 L 93 Room Air 03/23/22 03:00 36.4 C L 105 H 16 101/63 92 03/22/22 23:00 36.7 C 86 18 117/73 92 PG Care Time/CCT Total # of Minutes Spent Total Time Spent with Patient: Total time spent is greater than 50% in coordination of care (as documented) at patient's floor/unit and/or counseling patient: Coding Level of Care Code None Diagnoses Acute cholecystitis K81.0
--- NOTE | 2022-03-23 08:44 | Hospitalist Progress Note ---
Date of Service March 23, 2022 Assessment & Plan (1) Pancolitis: Plan: suspicious for foodborne enteritis per admission evaluation. After cholecystectomy discover of gangrenous cholecystitis. Continue Zosyn. Stool studies uncollected (2) Gallbladder disease: Plan: Acute gangrenous cholecystitis found at the time of laparoscopic cholecystectomy 03/22/22 Continue Zosyn. Surgery started clear liquids. vomiting now suspect post op ileus , made npo Continue IV fluids for now. (3) HBP (high blood pressure): Plan: Stable. since not taking po well add scheduled metoprolol to help with BP and afib (4) Paroxysmal atrial fibrillation: Plan: iv metoprolol, heparin sc. Eliquis on hold. rate control is acceptable (5) Anticoagulant long-term use: Plan: Eliquis stopped on admission. (6) BPH loc w urin obs/LUTS: Plan: Medical management Plan Eventual discharge back to home Admission and Anticipated Discharge Date Admission Date: March 21, 2022 Subjective pt was feeling ok, did have afib with some rapid rates, vomiting in the afternoon downgraded to npo again, converted metoprolol to iv Review of Systems Review of Systems: Mild distress and fatigue no headache, no visual changes no speech or swallowing issues no chest pain, pressure or palpitations no shortness of breath, cough or wheezes + abdominal pain, +nausea & vomiting no flatus or stool no dysuria, hematuria or frequency no focal joint pain or swelling no back pain, CVA tenderness or radicular pain no bruising, bleeding or rashes no focal signs of weakness or numbness or altered sensation no complaints of anxiety or depression.. Physical Exam Physical Exam: The patient appeared well nourished and normally developed. Vital signs as documented. Head exam is normocephalic atraumatic Neck is without JVD, thyromegaly, or carotid bruits. Lungs are clear to auscultation, no focal loss of breath sounds Cardiac exam, Rhythm is rapid and irregular. Abdominal exam reveals hypoactive bowel sounds, soft, mild tenderness Extremities are nonedematous and both pedal pulses are present Neurologic exam is alert and oriented, no focal loss of strength or sensation Skin is without bruises or rashes Psychologically is without concerns for anxiety or depression.. Results & Data Results & Data ([facility]) Vital Signs (Past 12 Hours) Vital Signs Temp Pulse Resp BP Pulse Ox O2 Del Method 03/23/22 07:29 98.1 F 112 H 18 99/61 L 93 Room Air 03/23/22 03:00 97.5 F L 105 H 16 101/63 92 03/22/22 23:00 98.1 F 86 18 117/73 92 PG Care Time/CCT Total # of Minutes Spent Total Time Spent with Patient: Total time spent is greater than 50% in coordination of care (as documented) at patient's floor/unit and/or counseling patient: Coding Level of Care Code 44603 Subseq Hosp Care Lvl 3 Diagnoses Pancolitis K51.00 Gallbladder disease K82.9 HBP (high blood pressure) I10 Hypertension type: essential hypertension Paroxysmal atrial fibrillation I48.0 Anticoagulant long-term use Z79.01 BPH loc w urin obs/LUTS N40.1 (1) HBP (high blood pressure) Hypertension type: essential hypertension Qualified Code(s): I10 - Essential (primary) hypertension
[2022-03-23] MEDS: METOPROLOL SUCC 50MG EXT REL TAB PO SCH (08:48)
[2022-03-23] MEDS: PANTOprazole 40 MG in SYRINGE 0 ML IV SCH (10:46)
[2022-03-23] MEDS ORDERED: METOPROLOL TARTRATE 1 MG/ML VIAL IV PRN (11:29)
[2022-03-23] MEDS ORDERED: ONDANSETRON INJ 2 MG/ML 2 ML VIAL IV PRN (13:14)
[2022-03-23] MEDS: ENOXAPARIN INJ 30 MG/0.3 ML SYR SQ SCH (14:33)
[2022-03-23] MEDS: METOPROLOL TARTRATE 1 MG/ML VIAL IV SCH ×2 (17:04→20:03)
[2022-03-23] MEDS: ATORVASTATIN 20 MG TAB PO SCH (20:06)
[2022-03-24] MEDS: NSS + 20MEQ KCL 20 MEQ/1,000 ML BAG IV SCH ×3 (01:12→17:31)
[2022-03-24] MEDS: METOPROLOL TARTRATE 1 MG/ML VIAL IV SCH ×7 (04:28→23:33)
[2022-03-24] MEDS: PIPERACILLIN/TAZOBACTAM 3.375 GM in DEXTROSE 5% 100 ML IV SCH ×3 (05:59→20:03)
[2022-03-24 07:06] LABS: Basophils # (auto) 0.02 K/uL (0-0.2); Basophils % (auto) 0.1 %; Eosinophils % (auto) 0.7 %; Hematocrit (blood only) 38.6 % (40.1-51.0); Hemoglobin 13.2 g/dl (14.0-18.0); Immature Granulocytes # (auto) 0.11 K/uL (0.00-0.02); Immature Granulocytes % (auto) 0.7 %; Lymphocytes # (auto) 0.78 K/uL (1.2-3.4); Lymphocytes % (auto) 5.1 %; Mean Corpuscular Hemoglobin 32.4 pg (25.0-34.0); Mean Corpuscular Hgb Conc 34.2 g/dL (32.0-36.0); Mean Corpuscular Volume 94.8 fL (80.0-100.0); Mean Platelet Volume 9.5 fL (9.4-12.4); Monocytes # (auto) 0.88 K/uL (0.24-0.82); Monocytes % (auto) 5.8 %; Neutrophils % (auto) 87.6 %; Platelet Count 156 K/uL (130-400); RDW Coefficient of Variation 12.3 % (11.5-14.5); RDW Standard Deviation 43.1 fL (36.4-46.3); Red Blood Count 4.07 M/uL (4.63-6.08); White Blood Count 15.19 K/ul (4.8-10.8)
[2022-03-24 07:52] LABS: Albumin Level 2.6 gm/dl (3.4-5.0); BUN Creatinine Ratio 32.5 (10-20); Bilirubin Direct 0.2 mg/dl (0-0.2); Bilirubin,Total 0.9 mg/dl (0.2-1.0); Creatinine Clr Calc Pharmacy 79.5 ml/min; Est GFR (African American) 97.1 ml/min; Est GFR (Non-African American) 83.8 ml/min; Magnesium 1.8 mg/dl (1.7-2.4); Potassium 3.9 mmol/L (3.5-5.1); Total Protein 4.9 gm/dl (6.0-8.3)
--- NOTE | 2022-03-24 08:20 | Hospitalist Progress Note ---
Date of Service March 24, 2022 Assessment & Plan (1) Pancolitis: Plan: diarrhea and gi upset is from cholecystectomy discover of gangrenous cholecystitis. Continue Zosyn. Stool studies uncollected (2) Gallbladder disease: Plan: Acute gangrenous cholecystitis found at the time of laparoscopic cholecystectomy 03/22/22 Continue Zosyn. Surgery started clear liquids. vomiting now suspect post op ileus , supportive care (3) HBP (high blood pressure): Plan: Stable. since not taking po well add scheduled metoprolol to help with BP and afib (4) Paroxysmal atrial fibrillation: Plan: iv metoprolol, heparin sc. Eliquis on hold. has returned to NSR (5) Anticoagulant long-term use: Plan: Eliquis stopped on admission. restart heparin sc and once stable return to Eliquis (6) BPH loc w urin obs/LUTS: Plan: Medical management Admission and Anticipated Discharge Date Admission Date: March 21, 2022 Subjective pt has intermittent nausea , but did have normal BM this am, pt still with hypoactive bowel sounds converted back to sinus rhythm Review of Systems Review of Systems: Mild distress and fatigue no headache, no visual changes no speech or swallowing issues no chest pain, pressure or palpitations no shortness of breath, cough or wheezes + abdominal pain, +nausea & vomiting did have some stool no dysuria, hematuria or frequency no focal joint pain or swelling no back pain, CVA tenderness or radicular pain no bruising, bleeding or rashes no focal signs of weakness or numbness or altered sensation no complaints of anxiety or depression.. Physical Exam Physical Exam: The patient appeared well nourished and normally developed. Vital signs as documented. Head exam is normocephalic atraumatic Neck is without JVD, thyromegaly, or carotid bruits. Lungs are clear to auscultation, no focal loss of breath sounds Cardiac exam, Rhythm is rapid and irregular. Abdominal exam reveals hypoactive bowel sounds, soft, mild tenderness Extremities are nonedematous and both pedal pulses are present Neurologic exam is alert and oriented, no focal loss of strength or sensation Skin is without bruises or rashes Psychologically is without concerns for anxiety or depression.. Results & Data Results & Data ([facility]) Vital Signs (Past 12 Hours) Vital Signs Temp Pulse Pulse Resp BP Pulse Ox O2 Del Method 03/24/22 07:03 98.8 F 90 19 146/82 H 93 Room Air 03/24/22 02:46 98.1 F 97 H 18 109/75 93 Room Air 03/23/22 23:46 98.2 F 92 H 18 125/83 94 Room Air 03/23/22 22:58 95 H 03/23/22 20:22 116/78 PG Care Time/CCT Total # of Minutes Spent Total Time Spent with Patient: Total time spent is greater than 50% in coordination of care (as documented) at patient's floor/unit and/or counseling patient: Coding Level of Care Code 19068 Subseq Hosp Care Lvl 2 Diagnoses Pancolitis K51.00 Gallbladder disease K82.9 HBP (high blood pressure) I10 Hypertension type: essential hypertension Paroxysmal atrial fibrillation I48.0 Anticoagulant long-term use Z79.01 BPH loc w urin obs/LUTS N40.1 (1) HBP (high blood pressure) Hypertension type: essential hypertension Qualified Code(s): I10 - Essential (primary) hypertension
[2022-03-24] MEDS: PANTOprazole 40 MG TAB PO SCH (08:47)
--- NOTE | 2022-03-24 10:06 | Surgery Progress Note ---
Date of Service March 24, 2022 Assessment & Plan (1) Acute cholecystitis: Plan: POD 2 lap rodolfo WBC 15, LFTs normal ambulate recheck later, consider resuming diet Admission and Anticipated Discharge Date Admission Date: March 21, 2022 Supervising Physician Co-Signing Physician Notes Patient S&E, agree with above. POD#2 robotic cholecystectomy for gangrenous cholecystitis. Still belching and some bloating, but improved. +BM, +flatus. Sore, but no pain. Feels he is out of afib. afebrile, bp stable. abd soft, appropriately ttp. incisions w/o infection. wbc 15 (13), lft normal. Likely SIRS response and ileus given gangrenous cholecystitis. advance to full liquid diet. may restart oral anticoagulation. Home on [address] Lockett covering this weekend. Subjective BM this AM but belching, overall feels better but not hungry Physical Exam Gastrointestinal (Abdomen): Inspection/Auscultation: + abdomen distended (minimal) Percussion/Palpation: abdomen soft Results & Data ([facility]) Vital Signs (Past 12 Hours) Vital Signs Temp Pulse Pulse Resp BP BP Pulse Ox 03/24/22 07:00 86 03/24/22 08:46 75 144/87 H 03/24/22 08:44 75 144/87 H 03/24/22 07:03 37.1 C 90 19 146/82 H 93 03/24/22 02:46 36.7 C 97 H 18 109/75 93 03/23/22 23:46 36.8 C 92 H 18 125/83 94 03/23/22 22:58 95 H O2 Del Method 03/24/22 07:00 03/24/22 08:46 03/24/22 08:44 03/24/22 07:03 Room Air 03/24/22 02:46 Room Air 03/23/22 23:46 Room Air 03/23/22 22:58 PG Care Time/CCT Total # of Minutes Spent Total Time Spent with Patient: Total time spent is greater than 50% in coordination of care (as documented) at patient's floor/unit and/or counseling patient: Coding Level of Care Code None Diagnoses Acute cholecystitis K81.0
[2022-03-24] MEDS: ENOXAPARIN INJ 30 MG/0.3 ML SYR SQ SCH ×3 (12:08→23:33)
[2022-03-24] MEDS ORDERED: PROMETHAZINE HCL 12.5 MG in SODIUM CHLORIDE 0.9% 50 ML IV PRN (18:08)
[2022-03-24] MEDS: ATORVASTATIN 20 MG TAB PO SCH (20:03)
[2022-03-24 20:50] LABS: Adenovirus F 40/41 PCR Not Detected (NotDetected); Astrovirus PCR Not Detected (NotDetected); Campylobacter PCR Not Detected (NotDetected); Clostridium diff Toxin A/B PCR Not Detected (NotDetected); Cryptosporidium PCR Not Detected (NotDetected); Cyclospora cayetanensis PCR Not Detected (NotDetected); Entamoeba histolytica PCR Not Detected (NotDetected); Enteroaggregative E.coli(EAEC) Not Detected (NotDetected); Enteropathogenic E.coli (EPEC) Not Detected (NotDetected); Enterotoxigenic E.coli (ETEC) Not Detected (NotDetected); Giardia lamblia PCR Not Detected (NotDetected); Norovirus GI/GII PCR Not Detected (NotDetected); Plesiomonas shigelloides PCR Not Detected (NotDetected); Rotavirus A PCR Not Detected (NotDetected); Salmonella PCR Not Detected (NotDetected); Sapovirus PCR Not Detected (NotDetected); Shiga-like Toxin E.coli (STEC) Not Detected (NotDetected); Shigella/Enteroinvasive E.coli Not Detected (NotDetected); Vibrio cholerae PCR Not Detected (NotDetected); Vibrio species PCR Not Detected (NotDetected); Yersinia enterocolitica PCR Not Detected (NotDetected)
[2022-03-25] MEDS: NSS + 20MEQ KCL 20 MEQ/1,000 ML BAG IV SCH ×3 (01:33→18:30)
[2022-03-25] MEDS: METOPROLOL TARTRATE 1 MG/ML VIAL IV SCH ×6 (03:17→23:13)
[2022-03-25] MEDS: PIPERACILLIN/TAZOBACTAM 3.375 GM in DEXTROSE 5% 100 ML IV SCH ×3 (05:29→21:10)
--- NOTE | 2022-03-25 05:44 | Surgery Progress Note ---
Date of Service March 25, 2022 Assessment & Plan (1) Acute cholecystitis: Plan: Status post laparoscopic cholecystectomy on 03/22/2022 (postop day #3) Continue analgesics Continue antiemetics Patient was noted to have a gangrenous gallbladder still maintained on Zosyn while in the hospital Encourage use of incentive spirometry Continue activity as able Continue IV fluids until certain oral intake is adequate Consider advancing diet later this morning -Lovenox is in place for DVT prevention Admission and Anticipated Discharge Date Admission Date: March 21, 2022 Supervising Physician Co-Signing Physician Notes I personally saw and evaluated the patient with Bryan Mcbride PA-C and agree with the assessment and plan. 81-year-old male postoperative day 3 robotic assisted laparoscopic cholecystectomy for gangrenous cholecystitis He states he is still belching, however he did have 2 decent bowel movements and would like to try some oral intake Will start clear liquids again today and go slow Encourage ambulation and incentive spirometry Okay to restart his Eliquis from a surgical standpoint Will follow Subjective Patient is resting comfortably in bed. He notes that he has not had any nausea or vomiting since yesterday afternoon. He notes that he is passing flatus and had a small bowel movement last shift. He says he is voiding without difficulty. He was out of bed yesterday and was ambulating in the hallway. He denies any shortness of breath. He denies any fevers, shakes, or chills. He notes he does not have any significant pain at his surgical incisions, just some minor discomfort. Physical Exam Respiratory: normal respiratory effort; no respiratory distress and no labored breathing Gastrointestinal (Abdomen): Abdomen is soft, nonrigid, and nondistended. All surgical incisions are clean, dry, intact. Abdomen is nontender to palpation. Bowel sounds are present. Musculoskeletal: No calf tenderness Results & Data ([facility]) Vital Signs (Past 12 Hours) Vital Signs Temp Pulse Pulse Resp BP Pulse Ox O2 Del Method 03/25/22 03:58 36.8 C 83 17 134/76 95 Room Air 03/24/22 23:00 36.7 C 84 18 147/81 H 96 03/24/22 22:51 84 03/24/22 19:22 36.7 C 86 17 156/82 H 97 Room Air PG Care Time/CCT Total # of Minutes Spent Total Time Spent with Patient: Total time spent is greater than 50% in coordination of care (as documented) at patient's floor/unit and/or counseling patient: Coding Level of Care Code None Diagnoses Acute cholecystitis K81.0
[2022-03-25] MEDS: PANTOprazole 40 MG TAB PO SCH (08:49)
[2022-03-25] MEDS ORDERED: COUGH DROP (SUGAR FREE) LOZ 24 LOZ/1 BOX BUCCAL PRN (10:48)
[2022-03-25] MEDS: ENOXAPARIN INJ 30 MG/0.3 ML SYR SQ SCH ×2 (13:08→23:14)
--- NOTE | 2022-03-25 18:23 | Hospitalist Progress Note ---
Date of Service March 25, 2022 Assessment & Plan (1) Pancolitis: Plan: diarrhea and gi upset is from cholecystectomy discover of gangrenous cholecystitis. Continue Zosyn. Stool studies uncollected (2) Gallbladder disease: Plan: Acute gangrenous cholecystitis found at the time of laparoscopic cholecystectomy 03/22/22 Continue Zosyn. Surgery started clear liquids. vomiting now suspect post op ileus , supportive care (3) HBP (high blood pressure): Plan: Stable. since not taking po well metoprolol to help with BP and afib (4) Paroxysmal atrial fibrillation: Plan: return to po metoprolol, heparin sc. Eliquis resume on d/c. has returned to NSR (5) Anticoagulant long-term use: Plan: Eliquis stopped on admission. restart heparin sc and return to Eliquis on discharge (6) BPH loc w urin obs/LUTS: Plan: Medical management Admission and Anticipated Discharge Date Admission Date: March 21, 2022 Subjective Patient is resting comfortably in bed. He notes that he has not had any nausea or vomiting since yesterday afternoon. He has had bowel movements last 2 days, taking some po and surgery will advance diet, will change metoprolol to po on 03/26/22 Review of Systems Review of Systems: Mild distress and fatigue no headache, no visual changes no speech or swallowing issues no chest pain, pressure or palpitations no shortness of breath, cough or wheezes + abdominal pain, +nausea & vomiting did have some stool no dysuria, hematuria or frequency no focal joint pain or swelling no back pain, CVA tenderness or radicular pain no bruising, bleeding or rashes no focal signs of weakness or numbness or altered sensation no complaints of anxiety or depression.. Physical Exam Physical Exam: The patient appeared well nourished and normally developed. Vital signs as documented. Head exam is normocephalic atraumatic Neck is without JVD, thyromegaly, or carotid bruits. Lungs are clear to auscultation, no focal loss of breath sounds Cardiac exam, Rhythm is rapid and irregular. Abdominal exam reveals hypoactive bowel sounds, soft, mild tenderness Extremities are nonedematous and both pedal pulses are present Neurologic exam is alert and oriented, no focal loss of strength or sensation Skin is without bruises or rashes Psychologically is without concerns for anxiety or depression.. Results & Data Results & Data ([facility]) Vital Signs (Past 12 Hours) Vital Signs Temp Pulse Pulse Resp BP BP Pulse Ox 03/25/22 16:00 98.1 F 70 18 132/77 97 03/25/22 16:19 72 132/77 03/25/22 14:55 73 03/25/22 13:07 82 144/81 H 03/25/22 12:14 97.9 F 61 20 118/68 97 03/25/22 09:30 03/25/22 08:50 85 122/77 03/25/22 07:53 98.1 F 85 17 122/77 94 03/25/22 07:14 83 O2 Del Method 03/25/22 16:00 03/25/22 16:19 03/25/22 14:55 03/25/22 13:07 03/25/22 12:14 03/25/22 09:30 Room Air 03/25/22 08:50 03/25/22 07:53 Room Air 03/25/22 07:14 PG Care Time/CCT Total # of Minutes Spent Total Time Spent with Patient: Total time spent is greater than 50% in coordination of care (as documented) at patient's floor/unit and/or counseling patient: Coding Level of Care Code 49142 Subseq Hosp Care Lvl 2 Diagnoses Pancolitis K51.00 Gallbladder disease K82.9 HBP (high blood pressure) I10 Hypertension type: essential hypertension Paroxysmal atrial fibrillation I48.0 Anticoagulant long-term use Z79.01 BPH loc w urin obs/LUTS N40.1 (1) HBP (high blood pressure) Hypertension type: essential hypertension Qualified Code(s): I10 - Essential (primary) hypertension
[2022-03-25] MEDS: ATORVASTATIN 20 MG TAB PO SCH (21:00)
[2022-03-26] MEDS: NSS + 20MEQ KCL 20 MEQ/1,000 ML BAG IV SCH ×3 (04:57→20:32)
[2022-03-26] MEDS: METOPROLOL TARTRATE 1 MG/ML VIAL IV SCH (04:57)
--- NOTE | 2022-03-26 05:39 | Surgery Progress Note ---
Date of Service March 26, 2022 Assessment & Plan (1) Acute cholecystitis: Plan: Status post laparoscopic cholecystectomy on 03/22/2022 (postop day #4) Continue analgesics Continue antiemetics Patient was noted to have a gangrenous gallbladder, therefore will maintain on Zosyn while in the hospital Encourage use of incentive spirometry Continue activity as able We will consider discontinuing IV fluids if further diet advancement can be tolerated Consider advancing diet further this morning -Lovenox is in place for DVT prevention Admission and Anticipated Discharge Date Admission Date: March 21, 2022 Supervising Physician Co-Signing Physician Notes I personally saw and evaluated the patient with Bryan Mcbride PA-C and agree with the assessment and plan. 81-year-old male postoperative day 4 robotic assisted laparoscopic cholecystectomy for gangrenous cholecystitis He is tolerating clear liquids and had a bowel movement this morning Will advance to full's for lunch, if he tolerates he can he be advanced further for dinner His Eliquis can be restarted If he tolerates his diet today can likely be discharged from a surgery standpoint tomorrow Subjective Patient is resting comfortably in bed. He notes that he tolerated advancement of his diet to clears without any nausea or vomiting. He notes his bowels continue to move, most recently last evening. He is voiding without difficulty. He denies shortness of breath. He denies any fevers, shakes, or chills. He denies any significant pain in his abdomen at the present time. He notes that he has been able to ambulate in the hallway since surgery. Physical Exam Gastrointestinal (Abdomen): Abdomen is soft, nonrigid, and nondistended. There is minimal pain with palpation at surgical incisions. Surgical incisions are clean, dry, intact. Results & Data ([facility]) Vital Signs (Past 12 Hours) Vital Signs Temp Pulse Pulse Resp BP Pulse Ox O2 Del Method 03/26/22 03:00 37.0 C 90 18 107/66 94 Room Air 03/25/22 23:11 37 C 102 H 16 114/71 93 Room Air 03/25/22 22:59 84 03/25/22 22:18 36.8 C 89 18 104/69 94 Room Air 03/25/22 20:00 36.6 C 89 18 126/76 95 Room Air PG Care Time/CCT Total # of Minutes Spent Total Time Spent with Patient: Total time spent is greater than 50% in coordination of care (as documented) at patient's floor/unit and/or counseling patient: Coding Level of Care Code None Diagnoses Acute cholecystitis K81.0
[2022-03-26] MEDS: PIPERACILLIN/TAZOBACTAM 3.375 GM in DEXTROSE 5% 100 ML IV SCH ×3 (05:59→21:27)
[2022-03-26] MEDS: METOPROLOL SUCC 50MG EXT REL TAB PO SCH (09:16)
[2022-03-26] MEDS: PANTOprazole 40 MG TAB PO SCH (09:16)
[2022-03-26] MEDS: ENOXAPARIN INJ 30 MG/0.3 ML SYR SQ SCH ×2 (13:25→23:23)
--- NOTE | 2022-03-26 18:56 | Hospitalist Progress Note ---
Date of Service March 26, 2022 Assessment & Plan (1) Gallbladder disease: Plan: Acute gangrenous cholecystitis found at the time of laparoscopic cholecystectomy 03/22/22 Continue Zosyn. Surgery has advanced diet (2) Pancolitis: Plan: diarrhea and gi upset is from cholecystectomy discovery of gangrenous cholecystitis. Continue Zosyn. (3) HBP (high blood pressure): Plan: Stable. since not taking po well metoprolol to help with BP and afib (4) Paroxysmal atrial fibrillation: Plan: return to po metoprolol, heparin sc. Eliquis resume on d/c. has returned to NSR with intermittent bouts of A. fib (5) Anticoagulant long-term use: Plan: Eliquis stopped on admission. restart heparin sc and return to Eliquis on discharge (6) BPH loc w urin obs/LUTS: Plan: Medical management Admission and Anticipated Discharge Date Admission Date: March 21, 2022 Subjective Patient is resting comfortably in bed. He notes that he tolerated advancement of his diet without any nausea or vomiting. He notes his bowels continue to move. He is voiding without difficulty. He denies shortness of breath. He denies any fevers, shakes, or chills. He denies any significant pain in his abdomen at the present time. He notes that he has been able to ambulate in the hallway since surgery. Review of Systems Review of Systems: Mild distress and fatigue no headache, no visual changes no speech or swallowing issues no chest pain, pressure or palpitations no shortness of breath, cough or wheezes + abdominal pain, +nausea & vomiting did have some stool no dysuria, hematuria or frequency no focal joint pain or swelling no back pain, CVA tenderness or radicular pain no bruising, bleeding or rashes no focal signs of weakness or numbness or altered sensation no complaints of anxiety or depression.. Physical Exam Physical Exam: The patient appeared well nourished and normally developed. Vital signs as documented. Head exam is normocephalic atraumatic Neck is without JVD, thyromegaly, or carotid bruits. Lungs are clear to auscultation, no focal loss of breath sounds Cardiac exam, Rhythm is rapid and irregular. Abdominal exam reveals hypoactive bowel sounds, soft, mild tenderness Extremities are nonedematous and both pedal pulses are present Neurologic exam is alert and oriented, no focal loss of strength or sensation Skin is without bruises or rashes Psychologically is without concerns for anxiety or depression.. Results & Data Results & Data ([facility]) Vital Signs (Past 12 Hours) Vital Signs Temp Pulse Resp BP Pulse Ox O2 Del Method 03/26/22 16:40 97.7 F 83 16 117/70 97 Room Air 03/26/22 11:37 98.2 F 91 H 18 118/84 97 Room Air 03/26/22 09:52 Room Air 03/26/22 07:00 98.2 F 82 18 129/75 97 PG Care Time/CCT Total # of Minutes Spent Total Time Spent with Patient: Total time spent is greater than 50% in coordination of care (as documented) at patient's floor/unit and/or counseling patient: Coding Level of Care Code 26527 Subseq Hosp Care Lvl 2 Diagnoses Gallbladder disease K82.9 Pancolitis K51.00 HBP (high blood pressure) I10 Hypertension type: essential hypertension Paroxysmal atrial fibrillation I48.0 Anticoagulant long-term use Z79.01 BPH loc w urin obs/LUTS N40.1 (1) HBP (high blood pressure) Hypertension type: essential hypertension Qualified Code(s): I10 - Essential (primary) hypertension
[2022-03-26] MEDS: ATORVASTATIN 20 MG TAB PO SCH (20:32)
[2022-03-27] MEDS: NSS + 20MEQ KCL 20 MEQ/1,000 ML BAG IV SCH ×2 (03:47→06:29)
[2022-03-27] MEDS: PIPERACILLIN/TAZOBACTAM 3.375 GM in DEXTROSE 5% 100 ML IV SCH (06:29)
[2022-03-27] MEDS: PANTOprazole 40 MG TAB PO SCH (07:38)
[2022-03-27] MEDS: METOPROLOL SUCC 50MG EXT REL TAB PO SCH (07:38)
--- NOTE | 2022-03-27 09:22 | Surgery Progress Note ---
Date of Service March 27, 2022 Assessment & Plan (1) Acute cholecystitis: Plan: POD 5 lap rodolfo seen with Dr. Levy michael for d/c home Admission and Anticipated Discharge Date Admission Date: March 21, 2022 Supervising Physician Co-Signing Physician Notes I personally saw and evaluated the patient with Nick Mejia PA-C and agree with the assessment and plan. 81-year-old male postoperative day 5 robotic assisted laparoscopic cholecystectomy for gangrenous cholecystitis He is tolerating a regular diet and has return of bowel function He stable for discharge from a surgery standpoint He is going to resume his Eliquis upon discharge To follow-up with Dr. Stern in a week or so Subjective tolearting diet, bowels moved Physical Exam Gastrointestinal (Abdomen): Inspection/Auscultation: + abdominal surgical incision (dry) Percussion/Palpation: abdomen soft Results & Data ([facility]) Vital Signs (Past 12 Hours) Vital Signs Temp Pulse Pulse Resp BP Pulse Ox O2 Del Method 03/27/22 08:46 Room Air 03/27/22 08:00 36.6 C 84 19 144/86 H 96 03/27/22 03:00 36.6 C 83 18 136/84 95 Room Air 03/26/22 23:00 36.9 C 88 18 129/85 94 Room Air 03/26/22 22:56 77 PG Care Time/CCT Total # of Minutes Spent Total Time Spent with Patient: Total time spent is greater than 50% in coordination of care (as documented) at patient's floor/unit and/or counseling patient: Coding Level of Care Code None Diagnoses Acute cholecystitis K81.0
--- NOTE | 2022-03-27 18:02 | Discharge Summary ---
Date of Service March 27, 2022 Admission HPI Per Admitting Provider ER Signout: Overnight RUQ abdominal pain began 1 day ago Hx afib on anticoag Multiple comorbidities No diarrhea, +nausea on presentation. 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 Maday Ryder --> CT pancolitis ?gallbladder Medicine admit pancolitis, coverage for gallbladder, reasses tomorrow Frieda gave Zosyn. Pancolitis etiology unknown. Nonrigid abdomen. Does not appear ischemic (no blood, lactate pending). - Stool studies ?normal - Stool PCR Hemodynamically stable, looks good in the room,. ___ HPI yesterday after lunch had 4 crackers with ham salad on themand din't feel well. Had a severe stomach ache which rapidly worsened until 2am this morning. Throughout the course of the day went ot the bathroom 3-4 times. Severely nauseus but minimal emesis, nonbloody/nonbilious Suspected food poisoning. RUQ pain, son who is a pharmacist recommended he be seen for evaluation of the gallbladder 2am this mornign pain was so severe he could not take it anymore and came to the ER Currently pain is tolerable. 5/10 at bedside, 9.5-10/10 last night At home took 2x tylenol and had a leftover pain pill from knee surgery but not sure which one and took 1x. Not oxycodone, but doesn't remember the name Previous few weeks no abdominal pain/indigestion/problems with abdomanl pain No bloody/black bowel movements. Darker when he drinks prune juice but no melena/blood No diarrhea in the last few weeks Yesterday went 5x loose but not liquid bowels after crackers No fevers, chills, or sweats No shortness of breath, chest pain, chest pressure no dysuria, does take medicine for retention L knee surgery January 13, doing well. No other recent procedures. No antibiotics after, just perioperative Last took blood thinner at 1030pm last night Did not take his metoprolol this AM Medical History: Reviewed Medications: Reviewed Surgical History: Reviewed Allergies: Reviewed Social History:No current of former tobacco. Rare social alcohol. No medical marijuana or recreational drug use. Code Status: Surrogate DM would be Jania Tanner or daughter Valentine Vaughan. Full code. Principal Diagnosis cholecystitis s/p cholecystectomy post op ileus resolved Discharge Exam The patient appeared stable Vital signs as documented. Lungs are clear to auscultation and appear unlabored Cardiac exam, Rhythm is regular.. No murmurs, rubs or gallops. Abdominal exam reveals normal bowel sounds, soft non tender, no masses Extremities are nonedematous and both pedal pulses are normal. Neurologic exam is alert and oriented, no focal loss of strength or sensation Skin is without bruises or rashes Psychologically is without concerns for anxiety or depression. Discharge Data Allergies Allergy/AdvReac Type Severity Reaction Status Date / Time No Known Drug Allergies Allergy . Verified 02/28/22 10:54 Consultations 03/21/22 09:39 ED Decision to Admit Stat Procedures Performed Operation Date: 03/22/22 13:25 Actual Procedures p Robotic assisted Laparoscopic Cholecystectomy(Not Applicable) - Enrrique Stern, DO, FACS Ordered Studies 03/21/22 02:33 US gallbladder Urgent 03/21/22 04:12 CT abd pelvis IV con only Urgent Hospital Course (1) Gallbladder disease: Acute gangrenous cholecystitis found at the time of laparoscopic cholecystectomy 03/22/22 Continue Zosyn. Surgery has advanced diet, pt tolerated it (2) Pancolitis: diarrhea and gi upset is from cholecystectomy discovery of gangrenous cholecystitis. completed Zosyn. (3) HBP (high blood pressure): Stable. since not taking po well metoprolol to help with BP and afib (4) Paroxysmal atrial fibrillation: return to po metoprolol, heparin sc. Eliquis resume on d/c. has returned to NSR with intermittent bouts of A. fib (5) Anticoagulant long-term use: Eliquis stopped on admission. restart heparin sc and return to Eliquis on discharge (6) BPH loc w urin obs/LUTS: Medical management Total Time Total Time Spent Total Time Spent (In Minutes): It required greater than 30 minutes to prepare this patient for discharge Discharge Plan Discharge Items Patient Disposition: Home - Self-Care Reason For Visit: PANCOLITIS VS GALLBLADDER OR BOTH Discharge Diagnosis: laparoscopic cholecystectomy Condition on Discharge: Good Activity: Per Instructions section Lifting: No more than 10 pounds Bathing Comment: may shower; no soaking in tubs/pools Exercise/Sports: Wait until after follow-up appointment Driving/Machine Use: no driving while taking narcotics for pain Non-emergency contact: Primary Care Provider and Surgeon Call non-emergency contact if: you have any medication questions, your symptoms worsen, your pain is not controlled, your pain is concerning for you, you have a fever, your temperature is above 101.5, your wound has increased redness, your wound has increased drainage and your wound pain has increased Follow-up/Referrals: Enrrique Stern DO, FACS [Physician] - 04/10/22 11:15 am (Please call to schedule follow up in clinic within 2 weeks ) Anupam Cohen Jr, DO [Primary Care Provider] - Diet: Low Fat Addtl Attending Provider Instructions: continue your usual cardiac medications eat a low fat diet follow up with your primary care for an update in one week Pending Studies at Discharge: Yes Studies:: surgical pathology Stand-Alone Forms: My [facility] [employer], Smoking Cessation Medications and DC Order Prescriptions: Continued alfuzosin 10 mg tablet extended release 24 hr 10 mg PO DAILY Qty: 30 2RF Rx Instructions: administer after the same meal each day Eliquis 5 mg tablet 5 mg PO BID Qty: 180 3RF metoprolol succinate [Toprol XL] 50 mg tablet extended release 24 hr 50 mg PO QAM Qty: 90 3RF atorvastatin 20 mg Tablet 20 mg PO HS Discharge Orders: Discharge Order (Routine); Ordered 03/27/22 Ordered By: Duncan Sterling/Other Patient Handouts: After Gallbladder Surgery, Cholecystectomy, Having Laparoscopic Cholecystectomy, Cholecystectomy Dc Admission Data Admit Date/Time: 03/21/22 10:16 Attending Provider: Duncan Hernandez Admit Provider: Vamsi Adler Primary Care Provider: Anupam Cohen Jr Other Providers: Vamsi Adler Other Interventions: Discharge Summary Assessment (RN) Last Done: 03/27/22 09:52 Coding Level of Care Code D/C DAY MANAGEMENT >30 MINS Diagnoses Gallbladder disease K82.9 Pancolitis K51.00 HBP (high blood pressure) I10 Hypertension type: essential hypertension Paroxysmal atrial fibrillation I48.0 Anticoagulant long-term use Z79.01 BPH loc w urin obs/LUTS N40.1
--- NOTE | 2022-04-05 09:51 | Coding Query ---
Your help is needed for correct coding of this account; please clarify if the patients Post-operative Ileus was: ( See Surgery Note 03/21) ( ) expected out of the surgery ( ) unexpected complication from the surgery (xx )other please specify id prefer surgery to specify if this is part of the surgery since I am not doing the procedure Thank you Chetan MARTINEZ CCS MTDD
--- NOTE | 2022-04-06 07:26 | Coding Query ---
Your help is needed for correct coding of this account; please clarify if the patients Post-operative Ileus was: ( x) expected out of the surgery ( ) unexpected complication from the surgery ( )other please specify Thank you Chetan TAO
== END 2022-03-27 11:12 | disposition home or self-care (01) | DRG 418 ==
LOC: ED 02:06 → SUATTDRO 10:16 → EDINP 10:16 → 2S 03-22 14:35

== ENCOUNTER 2024-01-01 09:11 | Observation (INO) ==
--- NOTE | 2024-01-01 09:39 | Emergency Department Note ---
Impression & Plan Hypotension, Dizziness, Atrial fibrillation ED Provider Note NAME: MISTY RODRIGUEZ AGE: 83 SEX: M : 1940 ARRIVES VIA: Walk-In INFORMANT: [Patient] ED PROVIDER(S): [Ranulfo Jacobs MD] CHIEF COMPLAINT: Cardiac assessment HISTORY OF PRESENT ILLNESS: The patient is an 83-year-old male who was discharged from our hospital on 21 December. He had been in for weakness and was found to be dehydrated. Stroke was ruled out. Patient since discharge has followed up with his family doctor and with cardiology. When he saw his family doctor's office, his blood pressure was somewhat low. The patient states that he has been holding his metoprolol, he has missed 3 days of metoprolol. Despite the missed metoprolol dosing, the patient's heart rate has not increased. His blood pressure has not improved. Patient states that last night, his blood pressure was so low that he could not even stand without being off balance and dizzy. The patient began to feel short of breath with exertion and noticed that he was in atrial fibrillation. He felt pain in his shoulders and neck but there was no chest pain. There has been no fever, no chills, no cough. Of note, the patient is on flecainide. He has been taking this as prescribed. He does state though that he has not taken any medications yet this morning. Of note, in triage, the patient's blood pressure was in the 60s systolic. PMHx/PSHx/Social Hx: See Below PHYSICAL EXAM: GENERAL: Patient is in no acute distress. HEENT: No acute trauma, normocephalic atraumatic, mucous membranes moist, no nasal congestion. NECK: No stridor, no adenopathy, no meningismus, trachea is midline. LUNGS: Clear to auscultation bilaterally, no wheeze, no rhonchi, breath sounds equal. HEART: Without murmurs gallops or rubs, normal rate, irregular rhythm. Heart tones are distant. ABDOMEN: Soft, nontender, no peritonitis. EXTREMITIES: No cyanosis, full range of motion of all the joints without pain or difficulty. NEUROLOGIC: Oriented x 3, no acute motor or sensory deficits, no focal weakness. SKIN: No jaundice, no diaphoresis. DIFFERENTIAL DIAGNOSIS: Dehydration, medication reaction, tachybradycardia syndrome, anemia, renal failure, dysrhythmia, PA, among others. EMERGENCY DEPARTMENT PROCEDURES: MEDICAL DECISION MAKING: There is no leukocytosis or concerning anemia. There is a normal platelet count. No coagulopathy. No renal failure or significant electrolyte abnormality. No concerning liver enzyme elevation. The patient appeared to be in a euthyroid state. ECG showed a rate controlled atrial fibrillation, no acute ST elevation. Cardiac enzyme testing x 1 is not consistent with acute cardiac injury. Urinalysis did not show infection. Chest x-ray did not show CHF or pneumonia. On exam, the patient was initially hypotensive in triage. He was noted to be in atrial fibrillation but the rate was controlled. The patient was given a 500 cc saline bolus. Patient presents with some dizziness, weakness, neck and shoulder pain. He was hypotensive in triage at around 65 systolic. His blood pressure improved when he was laid flat on the stretcher. The patient admits that his symptoms are primarily with standing and movement, he feels well lying down. Patient presents hypotensive. The reason for the hypertension is unclear. I did call and speak with cardiology. Metoprolol is to be held. The flecainide is to be held. The patient will be hospitalized and monitored. Hopefully with some medication adjustments, his blood pressure will stabilize. Prior/Outside records/notes reviewed: Discharge summary note from 12/22/2023 discussing his hospitalization and findings of hypovolemia. ECG per my interpretation: Indication was shortness of breath. The ECG shows atrial fibrillation with a rate of 87. There is no acute ST elevation, there are no PVCs. The QTc is 440. Continuous Cardiac Monitoring per my interpretation: An order was placed for continuous cardiac monitoring. The monitor shows a rate of 85 with atrial fibrillation. Imaging/x-ray results per my interpretation: Chest x-ray does not show mediastinal widening, pneumonia or CHF. Chronic Medical/Social conditions affecting care: Chronic anticoagulation, advanced age. Care/Management discussed with: [facility] cardiology-Dr. Saleem. Case management and the on-call hospitalist. Level of care consideration(s): After review of the information above and other included data: --I believe the patient requires escalation of care to admission DISPOSITION: Admission with cardiology consult Past Med/Surg History Problem List (Updated 01/01/24 @ 16:27 by Ranulfo Jacobs MD) Atrial fibrillation (Acute) Dizziness (Acute) Hypotension (Acute) Orthostatic hypotension Hypotension Ear infection Headache (Acute) Slurred speech (Acute) Dizziness (Acute) Sensorineural hearing loss of both ears Paroxysmal atrial fibrillation Hyperlipidemia 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, organic Unilateral inguinal hernia, with obstruction, without gangrene, not specified as recurrent (Chronic) Erectile dysfunction Anticoagulant long-term use Medical History Ureteral stone Nephrolithiasis Inguinal hernia Osteoarthritis History of kidney stones History of skin cancer Hyperlipidemia Surgical History Hx laparoscopic cholecystectomy (03/22/22) History of lithotripsy Hx of prostate biopsy History of herniorrhaphy History of cataract surgery History of colonoscopy History of tooth extraction H/O elbow surgery Family History Father Stroke Denies family history of Ovarian cancer Prostate cancer Myocardial infarction Breast cancer Colorectal cancer Social History Smoking Status: Never smoker Second Hand Exposure: No; Do You Dip or Chew Tobacco: No; Tobacco Cessation Education Requested by Patient: No Hx Alcohol Use: Yes Alcohol type: beer and wine Hx Substance Use: No Preferred Language: Turkmen Communication Ability: Effective Visual Impairment: No Limitations Pilates Coordinator Required: No Beliefs That Will Affect Care: None marital status: Life Partner Current Living Situation: Spouse Current Living Situation Comment: [facility]" IN [place] [address] [address] TILL LATE NOVEMBER EACH YR WITH GIRLFRIEND current occupational status: retired Other Information That Helps Us Care for You: No Feels Safe at Home: Yes Safety Concerns: Feels Safe At This Time Seatbelt Use: always Assistive Devices: Denture - Upper, Glasses and Hearing Aid - Bilateral Allergies Allergies Allergy/AdvReac Type Severity Reaction Status Date / Time No Known Drug Allergies Allergy . Verified 01/01/24 10:33 Home Meds Home Medications Medication Instructions Recorded Confirmed alfuzosin 10 mg tablet,extended 0 mg PO DAILY 01/01/24 01/01/24 release 24 hr metoprolol succinate 50 mg 0 mg PO QAM 01/01/24 01/01/24 tablet,extended release 24 hr (Toprol XL) Previous Rx's Medication Instructions Recorded flecainide 50 mg tablet 50 mg PO Q12H #180 tabs 04/16/23 atorvastatin 20 mg tablet 20 mg PO HS #90 tabs 06/28/23 apixaban 5 mg tablet (Eliquis) 5 mg PO BID #180 tabs 12/28/23 Results & Data (ED) Vital Signs Vital Signs - 24 hr 01/01/24 09:17 01/01/24 09:31 01/01/24 09:32 Temperature 36.3 C L Temperature Source Temporal Artery Scan Pulse Rate 86 96 H Pulse Rate [Apical] Respiratory Rate 20 Respiratory Effort / Characteristics Non-Labored Spontaneous Spontaneous Short of Breath SOB on Exertion Respiratory Depth Normal Normal Blood Pressure 66/47 L Blood Pressure [Right Arm] Blood Pressure Mean 53 Blood Pressure Mean [Right Arm] Blood Pressure Position [Right Arm] Pulse Oximetry 98 Oxygen Delivery Method Room Air Sepsis Recent Fever Within 48 Hours No Sepsis New/Unexplained Change in Mental Status N/A Sepsis Action Taken by Nursing No Action Required 01/01/24 09:33 01/01/24 09:33 01/01/24 09:35 Temperature Temperature Source Pulse Rate 87 Pulse Rate [Apical] 83 Respiratory Rate 22 22 Respiratory Effort / Characteristics Spontaneous Short of Breath SOB on Exertion Respiratory Depth Normal Blood Pressure Blood Pressure [Right Arm] 148/87 H Blood Pressure Mean Blood Pressure Mean [Right Arm] 107 Blood Pressure Position [Right Arm] Lying Pulse Oximetry 99 99 99 Oxygen Delivery Method Room Air Room Air Room Air Sepsis Recent Fever Within 48 Hours Sepsis New/Unexplained Change in Mental Status Sepsis Action Taken by Long Term Medications Current Medication List: was personally reviewed by me Laboratory Data Attestation: I reviewed the patient's lab results. 01/01/24 09:29 01/01/24 09:29 Lab Results 01/01/24 Range/Units 09:29 WBC 6.96 (4.8-10.8) K/ul RBC 4.79 (4.70-6.10) M/uL Hgb 16.0 (14.0-18.0) g/dl Hct 46.6 (42.0-52.0) % MCV 97.3 (80.0-100.0) fL MCH 33.4 (25.0-34.0) pg MCHC 34.3 (32.0-36.0) g/dL RDW Std Deviation 44.7 (36.4-46.3) fL RDW Coeff of Marie 12.4 (11.5-14.5) % Plt Count 195 (130-400) K/uL MPV 8.6 L (9.4-12.4) fL Immature Gran % (Auto) 0.3 % Neut % (Auto) 61.1 % Lymph % (Auto) 25.0 % [place] % (Auto) 10.3 % Eos % (Auto) 2.7 % Baso % (Auto) 0.6 % Neut # (Auto) 4.25 (1.40-6.50) K/uL Lymph # (Auto) 1.74 (1.20-3.40) K/uL [place] # (Auto) 0.72 H (0.11-0.59) K/uL Eos # (Auto) 0.19 (0.00-0.50) K/uL Baso # (Auto) 0.04 (0.00-0.20) K/uL Immature Gran # (Auto) 0.02 (0.01-0.20) K/uL PT 11.4 (9.0-12.0) Seconds INR 1.1 (0.9-1.1) APTT 27 (21-31) Seconds PTT Ratio 1.0 Sodium 139 (136-145) mmol/L Potassium 4.5 (3.5-5.1) mmol/L Chloride 106 (98-107) mmol/L Carbon Dioxide 27 (21-32) mmol/L Anion Gap 6 (3-11) BUN 18 (6-23) mg/dl Creatinine 1.18 (0.6-1.4) mg/dl Est Cr Clr Drug Dosing 50.5 ml/min Est GFR ( Amer) 65.7 ml/min Est GFR (Non-Af Amer) 56.7 ml/min BUN/Creatinine Ratio 15.3 (10-20) Glucose 173 H (70-99(Fasting)) mg/dl Calcium 8.9 (8.6-10.3) mg/dl Magnesium 2.1 (1.7-2.4) mg/dl Total Bilirubin 1.0 (0.2-1.0) mg/dl AST 14 (13-39) U/L ALT 14 (7-52) U/L Alkaline Phosphatase 72 (34-104) U/L Troponin I High Sens 4.5 (0-20) pg/ml Total Protein 6.6 (6.0-8.3) gm/dl Albumin 3.9 (3.4-5.0) gm/dl Globulin 2.7 (2.5-4.0) gm/dl Albumin/Globulin Ratio 1.4 (0.9-2) TSH 1.972 (0.300-4.500) uIu/ml Administered Medications Discontinued Medications Apixaban (Apixaban 5 Mg Tablet) 5 mg PO ONE STA Stop: 01/01/24 11:50 Last Admin: 01/01/24 12:58 Dose: 5 mg Documented By: TNK Sodium Chloride (Nss) 500 mls @ 999 mls/hr IV .Q31M ANTWON Stop: 01/01/24 10:15 Last Infusion: 01/01/24 10:29 Dose: Infused Documented By: Admin: 01/01/24 09:44 Dose: 999 mls/hr Documented By: TNK Lactated Ringer's (Lr) 500 mls @ 999 mls/hr IV .Q31M ONE Stop: 01/01/24 12:22 Last Infusion: 01/01/24 12:50 Dose: Infused Documented By: Admin: 01/01/24 12:18 Dose: 999 mls/hr Documented By: TNK Imaging Data Radiologist's Impression: Chest X-Ray 01/01/24 09:33 SINGLE VIEW CHEST CLINICAL HISTORY: Generalized weakness FINDINGS: An AP, portable, upright chest radiograph is compared to study dated 01/02/2022. The examination is degraded by portable technique and apical lordotic positioning. The heart is mildly enlarged noting atherosclerotic calcification of the thoracic aorta. The pulmonary vasculature is noncongested. Chronic interstitial thickening is similar to previous. There is mild bibasilar scarring/atelectasis. No airspace consolidation or large pleural effusion is identified. No pneumothorax is seen. The skeletal structures are osteopenic. The bony thorax is grossly intact. Arthritic change is seen in the shoulders. IMPRESSION: Cardiomegaly with no active disease in the chest. ACT 112: Negative or not required by law. Electronically signed by: Ranulfo Melton M.D. 01/01/2024 9:54 AM Discharge Plan Visit Data Chief Complaint: Cardiac Assessment Stated Complaint: AFIB, REF BY DOC ED Provider: Feese,Ranulfo J Discharge Problem: Hypotension, Dizziness, Atrial fibrillation Patient Disposition: Admitted As Inpatient Condition: Fair Discharge Instructions Interventions: ED Discharge Assessment Last Done: 01/01/24 11:37 Discharge Problem: Hypotension Qualifiers: Hypotension type: unspecified hypotension type Qualified Code(s): I95.9 - Hypotension, unspecified Atrial fibrillation Qualifiers: Atrial fibrillation type: unspecified Qualified Code(s): I48.91 - Unspecified atrial fibrillation
[2024-01-01] MEDS: SODIUM CHLORIDE 0.9% 500 ML IV SCH (09:44)
[2024-01-01 09:48] LABS: Basophils # (auto) 0.04 K/uL (0.00-0.20); Basophils % (auto) 0.6 %; Eosinophils # (auto) 0.19 K/uL (0.00-0.50); Eosinophils % (auto) 2.7 %; Hematocrit (blood only) 46.6 % (42.0-52.0); Immature Granulocytes # (auto) 0.02 K/uL (0.01-0.20); Immature Granulocytes % (auto) 0.3 %; Lymphocytes # (auto) 1.74 K/uL (1.20-3.40); Mean Corpuscular Hemoglobin 33.4 pg (25.0-34.0); Mean Corpuscular Hgb Conc 34.3 g/dL (32.0-36.0); Mean Corpuscular Volume 97.3 fL (80.0-100.0); Mean Platelet Volume 8.6 fL (9.4-12.4); Monocytes # (auto) 0.72 K/uL (0.11-0.59); Monocytes % (auto) 10.3 %; Neutrophils # (auto) 4.25 K/uL (1.40-6.50); Neutrophils % (auto) 61.1 %; Platelet Count 195 K/uL (130-400); RDW Coefficient of Variation 12.4 % (11.5-14.5); RDW Standard Deviation 44.7 fL (36.4-46.3); Red Blood Count 4.79 M/uL (4.70-6.10); White Blood Count 6.96 K/ul (4.8-10.8)
--- NOTE | 2024-01-01 09:56 | XRay Report ---
SINGLE VIEW CHEST CLINICAL HISTORY: Generalized weakness FINDINGS: An AP, portable, upright chest radiograph is compared to study dated 01/02/2022. The examinat ion is degraded by portable technique and apical lordotic positioning. The heart is mildly enlarged n oting atherosclerotic calcification of the thoracic aorta. The pulmonary vasculature is noncongested. Chronic interstitial thickening is similar to previous. There is mild bibasilar scarring/atelectasis . No airspace consolidation or large pleural effusion is identified. No pneumothorax is seen. The ske letal structures are osteopenic. The bony thorax is grossly intact. Arthritic change is seen in the s houlders. IMPRESSION: Cardiomegaly with no active disease in the chest. ACT 112: Negative or not required by law. Electronically signed by: Ranulfo Melton M.D. 01/01/2024 9:54 AM
[2024-01-01 10:02] LABS: Albumin Globulin Ratio 1.4 (0.9-2); Albumin Level 3.9 gm/dl (3.4-5.0); BUN Creatinine Ratio 15.3 (10-20); Calcium 8.9 mg/dl (8.6-10.3); Creatinine Clr Calc Pharmacy 50.5 ml/min; Est GFR (African American) 65.7 ml/min; Est GFR (Non-African American) 56.7 ml/min; Globulin 2.7 gm/dl (2.5-4.0); Magnesium 2.1 mg/dl (1.7-2.4); Potassium 4.5 mmol/L (3.5-5.1); Total Protein 6.6 gm/dl (6.0-8.3)
[2024-01-01 10:08] LABS: Troponin I High Sensitivity 4.5 pg/ml (0-20)
[2024-01-01 10:18] LABS: Thyroid Stimulating Hormone 1.972 uIu/ml (0.300-4.500)
[2024-01-01 10:19] LABS: INR 1.1 (0.9-1.1); Partial Thromboplastin Time 27 Seconds (21-31); Prothrombin Time 11.4 Seconds (9.0-12.0)
--- NOTE | 2024-01-01 10:28 | History & Physical Report ---
Date of Service January 01, 2024 Assessment & Plan (1) Orthostatic hypotension: Plan: Hold metoprolol and flecainide Monitor for arrhythmias other than a. fib on telemetry If ongoing despite holding above medications will consider holding alfuzosin Appears to be only orthostatic in setting of medications only while in atrial fibrillation as he appears to tolerate these medications when out of atrial fibrillation No infection symptoms/signs to explain this (2) Atrial fibrillation: Plan: Rate controlled but poorly tolerated even with rate control Planning on eventual ablation but maybe less symptomatic once off metoprolol and flecainide enough to go home He reports increased doses of flecainide although helped him stay in NSR he had more side effects from the increased dose Anticoagulation with Eliquis Consult cardiology for ongoing management Plan VTE Prophylaxis - Eliquis Diet - regular Disposition - observation to PCU Admission and Anticipated Discharge Date Admission Date: January 01, 2024 History of Present Illness Chief Complaint: Dizziness Primary Care Provider: Vicenta Hodge MD Richmond Newby is an 83 year old male who presents to the ER dizziness. He was recently admitted for the same on December 22, 2023 after returning from [place] with a recently treated ear infection and was felt to be dehydrated - improved with IV fluids overnight to the point he was discharged later the same day. Since discharge he was improved but still wobbly when he went home, generally weak but he was improving initially. However since he was still having some dizziness and his BP was low he has a family member who is a pharmicist and recommended stopping his metoprolol on Sunday therefore has not taken this since then. He feels when he goes into atrial fibrillation and thinks he was in normal sinus rhythms up until last night when he felt palpitations and took his pulse and knew he was back in atrial fibrillation. This occurred while just watching TV around 8-9pm last night. Associated stiff neck and shoulder (now improved in the ER) and shortness of breath on exertion. However even before this he was very fatigued on exertion and reports his BP was 54/39 when he checked it in [employer] yesterday before the atrial fibrillation event and while off metoprolol. He notes already feeling better after IV fluids given in the ER. He thinks he has had 4 episodes of atrial fibrillation while on flecainide since August with increasing frequency. He notes previously being on a higher dose but this caused intolerable side effects. ER contacted cardiology and recommended holding both flecainide and metoprolol at this time. Allergies Allergy/AdvReac Type Severity Reaction Status Date / Time No Known Drug Allergies Allergy . Verified 01/01/24 10:33 Home Medications Medication Instructions Recorded Confirmed Type flecainide 50 mg tablet 50 mg PO Q12H #180 tabs 04/16/23 01/01/24 Rx atorvastatin 20 mg tablet 20 mg PO HS #90 tabs 06/28/23 01/01/24 Rx apixaban 5 mg tablet (Eliquis) 5 mg PO BID #180 tabs 12/28/23 01/01/24 Rx alfuzosin 10 mg tablet,extended 0 mg PO DAILY 01/01/24 01/01/24 History release 24 hr metoprolol succinate 50 mg 0 mg PO QAM 01/01/24 01/01/24 History tablet,extended release 24 hr (Toprol XL) Past Med/Surg History Problem List (Updated 01/01/24 @ 23:26 by Rober Saleem MD) Paroxysmal atrial fibrillation Atrial fibrillation (Acute) Dizziness (Acute) Hypotension (Acute) Orthostatic hypotension Hypotension Ear infection Headache (Acute) Slurred speech (Acute) Dizziness (Acute) Sensorineural hearing loss of both ears Paroxysmal atrial fibrillation Hyperlipidemia 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, organic Unilateral inguinal hernia, with obstruction, without gangrene, not specified as recurrent (Chronic) Erectile dysfunction Anticoagulant long-term use Medical History Ureteral stone Nephrolithiasis Inguinal hernia Osteoarthritis History of kidney stones History of skin cancer Hyperlipidemia Surgical History Hx laparoscopic cholecystectomy (03/22/22) History of lithotripsy Hx of prostate biopsy History of herniorrhaphy History of cataract surgery History of colonoscopy History of tooth extraction H/O elbow surgery Family History Father Stroke Denies family history of Ovarian cancer Prostate cancer Myocardial infarction Breast cancer Colorectal cancer Social History Smoking Status: Never smoker Second Hand Exposure: No; Do You Dip or Chew Tobacco: No; Tobacco Cessation Education Requested by Patient: No Hx Alcohol Use: Yes Alcohol type: beer and wine Hx Substance Use: No Preferred Language: Malagasy Communication Ability: Effective Visual Impairment: No Limitations Sander And Polisher Required: No Beliefs That Will Affect Care: None marital status: Life Partner Current Living Situation: Spouse Current Living Situation Comment: "[facility]" IN [place] WINTER MONTHS TILL LATE NOVEMBER EACH YR WITH GIRLFRIEND current occupational status: retired Other Information That Helps Us Care for You: No Feels Safe at Home: Yes Safety Concerns: Feels Safe At This Time Seatbelt Use: always Assistive Devices: Denture - Upper, Glasses and Hearing Aid - Bilateral Review of Systems Review of Systems: All systems reviewed & are unremarkable except as noted in HPI & below Physical Exam Constitutional: WD/WN, vitals as above Eyes: PERRL, conjunctivae normal, anicteric sclerae ENMT: external ear and nose normal, oropharynx normal Respiratory: normal respiratory effort, lungs clear to auscultation Cardiovascular: Rate/Rhythm: regular rate and + irregularly irregular Heart Sounds: no murmur Extremities: normal capillary refill; no calf tenderness and no pedal edema Gastrointestinal (Abdomen): normal bowel sounds, soft, nontender, no hepatosplenomegaly Musculoskeletal: no cyanosis or clubbing, extremities motor strength 5/5 Skin: no rashes, warm and dry Neurologic: moves all extremities and awake; not confused Psychiatric: A+Ox3, euthymic affect Results & Data Results & Data Vital Signs (Past 12 Hours) Vital Signs Temp Pulse Pulse Resp BP BP Pulse Ox 01/01/24 09:35 87 22 99 01/01/24 09:33 83 22 148/87 H 99 01/01/24 09:33 99 01/01/24 09:31 96 H 01/01/24 09:17 36.3 C L 86 20 66/47 L 98 O2 Del Method 01/01/24 09:35 Room Air 01/01/24 09:33 Room Air 01/01/24 09:33 Room Air 01/01/24 09:31 01/01/24 09:17 Room Air Laboratory Results Abnormal lab results 01/01/24 Range/Units 09:29 MPV 8.6 L (9.4-12.4) fL [place] # (Auto) 0.72 H (0.11-0.59) K/uL Glucose 173 H (70-99(Fasting)) mg/dl Diagnostic Findings SINGLE VIEW CHEST CLINICAL HISTORY: Generalized weakness FINDINGS: An AP, portable, upright chest radiograph is compared to study dated 01/02/2022. The examination is degraded by portable technique and apical lordotic positioning. The heart is mildly enlarged noting atherosclerotic calcification of the thoracic aorta. The pulmonary vasculature is noncongested. Chronic interstitial thickening is similar to previous. There is mild bibasilar scarring/atelectasis. No airspace consolidation or large pleural effusion is identified. No pneumothorax is seen. The skeletal structures are osteopenic. The bony thorax is grossly intact. Arthritic change is seen in the shoulders. IMPRESSION: Cardiomegaly with no active disease in the chest. Medications Administered ER Medications Given: NSS 500ml bolus ECG Rate (beats per minute): 87 Rhythm: atrial fibrillation Findings: no acute ischemic change Comparison ECG Date: from (December 21, 2023) Change: the following changes noted (atrial fibrillation replaced sinus rhythm) Code Status & VTE Plan Code Status Full VTE Prophylaxis Plan VTE Prophylaxis will be ordered: Yes PG Care Time/CCT Total # of Minutes Spent Total Time Spent with Patient: Total time spent is greater than 50% in coordination of care (as documented) at patient's floor/unit and/or counseling patient: Coding Level of Care Code 92953 INT INP/OBS CARE 3/75MIN Diagnoses Orthostatic hypotension I95.1 Atrial fibrillation I48.91 Atrial fibrillation type: unspecified (2) Atrial fibrillation Atrial fibrillation type: unspecified Qualified Code(s): I48.91 - Unspecified atrial fibrillation
[2024-01-01 11:38] LABS: Appearance Urine Clear (Clear); Bilirubin Urine Negative (Negative); Blood Urine Negative (Negative); Color Urine Yellow; Glucose Urine UA Negative (Negative); Ketones Urine Negative (Negative); Leukocyte Esterase Urine Negative (Negative); Nitrite Urine Negative (Negative); Protein Urine Negative (Negative); Specific Gravity Urine 1.009 (1.000-1.030); Urobilinogen Urine Negative (Negative); pH Urine 6.5 (4.5-7.5)
[2024-01-01] MEDS ORDERED: ACETAMINOPHEN 325 MG TAB PO PRN (12:05)
[2024-01-01] MEDS: LACTATED RINGER'S 500 ML IV ONE (12:18)
[2024-01-01] MEDS: APIXABAN 5 MG TABLET PO STA (12:58)
--- NOTE | 2024-01-01 15:20 | Cardiology Consultation ---
Date of Consultation January 01, 2024 Assessment & Plan (1) Paroxysmal atrial fibrillation: (2) Hypotension: Plan ASSESSMENT/PLAN: 1. Symptomatic paroxysmal atrial fibrillation: Recommended discontinuation of flecainide. No beta-brianda given issues with hypotension with systolic pressures in the 60s to 80s at times. Follows with electrophysiology. Start Multaq 400 mg twice daily tomorrow and repeat ECG a few hours later. If he does not convert with Multaq in a few days, could consider cardioversion in the outpatient setting. He is being set up to see electrophysiology through [facility] for consideration of A-fib ablation as arranged by Dr. Cortez. Continue anticoagulation for stroke risk reduction. Discussed with Dr. Cortez. 2. Hypotension: Etiology uncertain. Recommend formal orthostatic vitals. Blood pressure improved with IV fluid. He seems to be hydrating better now than before. Consider replacing alfuzosin with other BP agent that may cause less issues with hypotension. Will order echo. 3. Disposition: Cardiology will continue to follow. Upon discharge, follow-up with his primary purchasing specialist, Dr. Cortez. Today's visit was 60 minutes in duration, which includes [id number] time, counseling patient, coordinating care, reviewing multiple records, discussing with primary aerophysics engineer, and completing documentation. Thank you for allowing me to participate in the care of your patient. Please call for any other questions or concerns. Sincerely, Jorge Saleem M.D. History of Present Illness Reason for Consultation: Atrial fibrillation Requesting Physician: Rubens Christine MD Attending Physician: Rubens Christine MD History of Present Illness Mr. Newby is a very pleasant 83-year-old gentleman with a history significant for paroxysmal atrial fibrillation (symptomatic) and dyslipidemia. His primary aerophysics engineer is Dr. Cortez. He was admitted on 01/01/2024 with hypotension and atrial fibrillation. He was recently discharged on 12/22/2023 due to dysarthria suspected from volume dep letion and hypotension. He has known paroxysmal atrial fibrillation. Symptoms with atrial fibrillation involve dyspnea on exertion and back/neck tightness, even at rest. He was placed on flecainide by his primary aerophysics engineer in April 2023. He did not have any symptomatic atrial fibrillation episodes until August 2023 and has had approximately 5 since then. Symptoms typically last for 24 hours before spontaneously resolving. He takes flecainide 50 mg twice daily but did not tolerate higher doses. At his pharmacy, it was noted that his systolic blood pressure was in the 60s. Therefore, he held metoprolol for the past 3 days. When his blood pressure is hypotensive, he feels lightheaded. He was noted to be hypotensive in the ER today with initial systolic blood pressure 66 mmHg. He was given 1 L of IV fluids and his blood pressure improved, as did his symptoms. He has increased his water consumption more recently due to concerns for orthostatic hypotension. While in [place] (July through November, he was golfing regularly and walking for exercise as well as going shopping. In fact, he walked 1 mile yesterday. He has not noted any significant edema. He denies chest pain, melena, hematochezia, or hematuria. He had an episode of syncope in September 2023 after consuming a large alcoholic beverage and experiencing A-fib symptoms. He had a febrile illness near the end of November and was diagnosed with ear infection, treated with antibiotics. Review of systems: As above. Family history: No known premature CAD. Father had stroke. Social history: He denies tobacco or drug abuse. Rare alcohol. Lives with his girlfriend locally from November to July, at which point he stays in [place]. 1 child. His daughter, Ashleigh Vaughan ([place] PG) and his girlfriend were present at the bedside. Allergies Allergy/AdvReac Type Severity Reaction Status Date / Time No Known Drug Allergies Allergy . Verified 01/01/24 10:33 Home Medications Medication Instructions Recorded Confirmed Type flecainide 50 mg tablet 50 mg PO Q12H #180 tabs 04/16/23 01/01/24 Rx atorvastatin 20 mg tablet 20 mg PO HS #90 tabs 06/28/23 01/01/24 Rx apixaban 5 mg tablet (Eliquis) 5 mg PO BID #180 tabs 12/28/23 01/01/24 Rx alfuzosin 10 mg tablet,extended 0 mg PO DAILY 01/01/24 01/01/24 History release 24 hr metoprolol succinate 50 mg 0 mg PO QAM 01/01/24 01/01/24 History tablet,extended release 24 hr (Toprol XL) Patient History Medical History Ureteral stone Nephrolithiasis Inguinal hernia Osteoarthritis History of kidney stones History of skin cancer Hyperlipidemia Surgical History Hx laparoscopic cholecystectomy (03/22/22) History of lithotripsy Hx of prostate biopsy History of herniorrhaphy History of cataract surgery History of colonoscopy History of tooth extraction H/O elbow surgery Family History Father Stroke Denies family history of Ovarian cancer Prostate cancer Myocardial infarction Breast cancer Colorectal cancer Social History Smoking Status: Never smoker Second Hand Exposure: No; Do You Dip or Chew Tobacco: No; Tobacco Cessation Education Requested by Patient: No Hx Alcohol Use: Yes Alcohol type: beer and wine Hx Substance Use: No Preferred Language: Danish Communication Ability: Effective Visual Impairment: No Limitations Picture Frame Maker Required: No Beliefs That Will Affect Care: None marital status: Life Partner Current Living Situation: Spouse Current Living Situation Comment: "[facility]" IN [place] WINTER MONTHS TILL LATE NOVEMBER EACH YR WITH GIRLFRIEND current occupational status: retired Other Information That Helps Us Care for You: No Feels Safe at Home: Yes Safety Concerns: Feels Safe At This Time Seatbelt Use: always Assistive Devices: Denture - Upper, Glasses and Hearing Aid - Bilateral Physical Exam Physical Exam: Gen.: No acute distress. Alert and oriented. HEENT: Anicteric sclera. Neck: No JVD. No bruits. Normal carotid upstrokes bilaterally. Cardiac: No ventricular heave. Irregularly irregular. Normal S1-S2. No murmurs, rubs, or gallops. Pulmonary: Clear to auscultation bilaterally without wheezes, rales, or rhonchi. Abdomen: Soft, nontender, nondistended, with normoactive bowel sounds. No bruits noted. Extremities: 2+ radial pulses bilaterally. 2+ posterior tibialis pulses bilaterally. No edema or cyanosis. Psychiatric: Affect appears appropriate. Results & Data Vital Signs (Past 12 Hours) Vital Signs Temp Pulse Pulse Pulse Resp BP BP 01/01/24 14:56 80 01/01/24 13:55 36.6 C 86 16 115/78 01/01/24 13:31 93 H 18 116/80 01/01/24 13:23 18 01/01/24 12:11 75 20 01/01/24 12:00 69 20 117/71 01/01/24 11:00 73 22 106/69 01/01/24 09:35 87 22 01/01/24 09:33 83 22 148/87 H 01/01/24 09:33 01/01/24 09:31 96 H 01/01/24 09:17 36.3 C L 86 20 66/47 L Pulse Ox O2 Del Method 01/01/24 14:56 01/01/24 13:55 99 Room Air 01/01/24 13:31 98 Room Air 01/01/24 13:23 96 Room Air 01/01/24 12:11 97 Room Air 01/01/24 12:00 97 Room Air 01/01/24 11:00 94 Room Air 01/01/24 09:35 99 Room Air 01/01/24 09:33 99 Room Air 01/01/24 09:33 99 Room Air 01/01/24 09:31 01/01/24 09:17 98 Room Air Laboratory Results Laboratory Results - last 24 hr 01/01/24 01/01/24 09:29 11:24 WBC 6.96 RBC 4.79 Hgb 16.0 Hct 46.6 MCV 97.3 MCH 33.4 MCHC 34.3 RDW Std Deviation 44.7 RDW Coeff of Marie 12.4 Plt Count 195 MPV 8.6 L Immature Gran % (Auto) 0.3 Neut % (Auto) 61.1 Lymph % (Auto) 25.0 [place] % (Auto) 10.3 Eos % (Auto) 2.7 Baso % (Auto) 0.6 Neut # (Auto) 4.25 Lymph # (Auto) 1.74 [place] # (Auto) 0.72 H Eos # (Auto) 0.19 Baso # (Auto) 0.04 Immature Gran # (Auto) 0.02 PT 11.4 INR 1.1 APTT 27 PTT Ratio 1.0 Sodium 139 Potassium 4.5 Chloride 106 Carbon Dioxide 27 Anion Gap 6 BUN 18 Creatinine 1.18 Est Cr Clr Drug Dosing 50.5 Est GFR ( Amer) 65.7 Est GFR (Non-Af Amer) 56.7 BUN/Creatinine Ratio 15.3 Glucose 173 H Calcium 8.9 Magnesium 2.1 Total Bilirubin 1.0 AST 14 ALT 14 Alkaline Phosphatase 72 Troponin I High Sens 4.5 Total Protein 6.6 Albumin 3.9 Globulin 2.7 Albumin/Globulin Ratio 1.4 TSH 1.972 Urine Color Yellow Urine Appearance Clear Urine pH 6.5 Ur Specific [place] 1.009 Urine Protein Negative Urine Glucose (UA) Negative Urine Ketones Negative Urine Blood Negative Urine Nitrite Negative Urine Bilirubin Negative Urine Urobilinogen Negative Ur Leukocyte Esterase Negative Diagnostic Findings Labs reviewed and notable for stable renal function, normal blood counts, normal TSH, normal magnesium, normal potassium. Telemetry personally reviewed and notable for rate controlled atrial fibrillation. ECG personally reviewed from 01/01/2024 9:24 AM: A-fib 87 bpm. LAFB. Outpatient cardiology note reviewed from 12/27/2023. History and physical report reviewed. Chest x-ray 01/01/2024: Noncongested pulmonary vasculature. Chronic interstitial thickening similar to previous per radiology. Medications Administered Current Inpatient Medications Acetaminophen (Acetaminophen 325 Mg Tab) 650 mg PO Q4H PRN PRN Reason: Pain or Fever Stop: 01/31/24 12:04 Apixaban (Apixaban 5 Mg Tablet) 5 mg PO BID ANTWON Stop: 01/31/24 20:59 Atorvastatin Calcium (Atorvastatin 20 Mg Tab) 20 mg PO HS [facility] Stop: 01/31/24 20:59 Ondansetron HCl (Ondansetron Inj 2 Mg/Ml 2 Ml Vial) 4 mg IV Q6H PRN PRN Reason: Nausea Stop: 01/31/24 12:04 Tamsulosin HCl (Tamsulosin Hcl 0.4 Mg Cap) 0.4 mg PO HS ANTWON Stop: 01/31/24 20:59 PG Care Time/CCT Total # of Minutes Spent Total Time Spent with Patient: Total time spent is greater than 50% in coordination of care (as documented) at patient's floor/unit and/or counseling patient: Coding Level of Care Code 68256 INT INP/OBS CARE 3/75MIN Diagnoses Paroxysmal atrial fibrillation I48.0 Hypotension I95.9 Hypotension type: unspecified hypotension type Time Spent (min) 60 (2) Hypotension Hypotension type: unspecified hypotension type Qualified Code(s): I95.9 - Hypotension, unspecified
[2024-01-01] MEDS: APIXABAN 5 MG TABLET PO SCH (19:59)
[2024-01-01] MEDS: TAMSULOSIN HCL 0.4 MG CAP PO SCH (19:59)
[2024-01-01] MEDS: ATORVASTATIN 20 MG TAB PO SCH (19:59)
[2024-01-02 07:21] LABS: Basophils # (auto) 0.03 K/uL (0.00-0.20); Basophils % (auto) 0.4 %; Eosinophils % (auto) 3.9 %; Hematocrit (blood only) 39.8 % (42.0-52.0); Hemoglobin 13.6 g/dl (14.0-18.0); Immature Granulocytes # (auto) 0.02 K/uL (0.01-0.20); Immature Granulocytes % (auto) 0.3 %; Lymphocytes # (auto) 1.93 K/uL (1.20-3.40); Lymphocytes % (auto) 25.3 %; Mean Corpuscular Hemoglobin 33.3 pg (25.0-34.0); Mean Corpuscular Hgb Conc 34.2 g/dL (32.0-36.0); Mean Corpuscular Volume 97.5 fL (80.0-100.0); Mean Platelet Volume 8.7 fL (9.4-12.4); Monocytes # (auto) 0.73 K/uL (0.11-0.59); Monocytes % (auto) 9.6 %; Neutrophils # (auto) 4.63 K/uL (1.40-6.50); Neutrophils % (auto) 60.5 %; Platelet Count 179 K/uL (130-400); RDW Coefficient of Variation 12.4 % (11.5-14.5); RDW Standard Deviation 44.8 fL (36.4-46.3); Red Blood Count 4.08 M/uL (4.70-6.10); White Blood Count 7.64 K/ul (4.8-10.8)
[2024-01-02 07:44] LABS: BUN Creatinine Ratio 19.4 (10-20); Calcium 8.1 mg/dl (8.6-10.3); Creatinine Clr Calc Pharmacy 57.9 ml/min; Est GFR (African American) 77.5 ml/min; Est GFR (Non-African American) 66.9 ml/min; Magnesium 1.9 mg/dl (1.7-2.4); Potassium 4.1 mmol/L (3.5-5.1)
[2024-01-02] MEDS: DRONEDARONE HCL 400 MG TAB PO SCH (10:09)
--- NOTE | 2024-01-02 10:50 | Cardiology Progress Note ---
Date of Service January 02, 2024 Assessment & Plan (1) Paroxysmal atrial fibrillation: (2) Hypotension: (3) Pericardial effusion: (4) Orthostatic hypotension: Plan ASSESSMENT/PLAN: 1. Symptomatic paroxysmal atrial fibrillation: Spontaneously converted to sinus rhythm overnight. Flecainide has seemed it effective. Start Multaq (as per EP) today. ECG approximately 3 hours later to monitor QT. No beta-brianda given issues with hypotension with systolic pressures in the 60s to 80s at times. Follows with electrophysiology. He is being set up to see electrophysiology through [facility] [place] for consideration of A-fib ablation as arranged by Dr. Cortez. Continue anticoagulation for stroke risk reduction. 2. Hypotension/orthostatic hypotension: Blood pressure improved after IV fluids. Discussed the importance of remaining well-hydrated. Recommended thigh-high compression stockings. Change positions slowly. If with these measures, continues to have issues with orthostatic hypotension, could liberalize sodium in his diet. Proven orthostatic blood pressure here on multiple evaluations. Consider replacing alfuzosin with other BP agent that may cause less issues with hypotension. 3. Pericardial effusion: Asymptomatic. Small. Does not seem to have any hemody namic significance. Can be followed in the outpatient setting with his primary mail opener, Dr. Cortez. Chronicity uncertain. 4. Disposition: Can be discharged home from a cardiology perspective if post multaq ECG is ok. Nursing staff to notify me when ECG completed for review. Follow-up with his primary mail opener/water team leader, Dr. Cortez. Patient care communicated with primary hospitalist, Dr. Payne. Admission and Anticipated Discharge Date Admission Date: January 01, 2024 Subjective Patient seen this morning. He feels back to baseline. Found to be orthostatic on several different vital assessments but asymptomatic. Denies chest pain, shortness of breath, syncope, near syncope, palpitations, edema, or bleeding. He converted to sinus rhythm overnight. He feels back to baseline. He was alone in his hospital room. Physical Exam Physical Exam: Gen.: No acute distress. Alert and oriented. HEENT: Anicteric sclera. Neck: No JVD. Cardiac: No ventricular heave. Regular. Normal S1-S2. No murmurs, rubs, or gallops. Pulmonary: Clear to auscultation bilaterally without wheezes, rales, or rhonchi. Abdomen: Soft, nontender, nondistended, with normoactive bowel sounds. No bruits noted. Extremities: 2+ radial pulses bilaterally. 2+ posterior tibialis pulses bilaterally. No edema. No cyanosis. Psychiatric: Affect appears appropriate. Results & Data Vital Signs (Past 12 Hours) Vital Signs Temp Pulse Pulse Resp BP Pulse Ox O2 Del Method 01/02/24 06:37 36.5 C 75 18 127/76 97 Room Air 01/02/24 02:50 36.7 C 73 18 126/76 97 Room Air 01/01/24 23:00 83 Intake & Output 12/31/23 01/01/24 01/02/24 01/03/24 06:59 06:59 06:59 06:59 Intake Total 1400 / 1400 Output Total 300 / 300 Balance 1100 / 1100 Weight 175 lb 0.752 oz Laboratory Results Laboratory Results - last 24 hr 01/01/24 01/02/24 11:24 06:55 WBC 7.64 RBC 4.08 L Hgb 13.6 L Hct 39.8 L MCV 97.5 MCH 33.3 MCHC 34.2 RDW Std Deviation 44.8 RDW Coeff of Marie 12.4 Plt Count 179 MPV 8.7 L Immature Gran % (Auto) 0.3 Neut % (Auto) 60.5 Lymph % (Auto) 25.3 [place] % (Auto) 9.6 Eos % (Auto) 3.9 Baso % (Auto) 0.4 Neut # (Auto) 4.63 Lymph # (Auto) 1.93 [place] # (Auto) 0.73 H Eos # (Auto) 0.30 Baso # (Auto) 0.03 Immature Gran # (Auto) 0.02 Sodium 139 Potassium 4.1 Chloride 109 H Carbon Dioxide 27 Anion Gap 3 BUN 20 Creatinine 1.03 Est Cr Clr Drug Dosing 57.9 Est GFR ( Amer) 77.5 Est GFR (Non-Af Amer) 66.9 BUN/Creatinine Ratio 19.4 Glucose 110 H Calcium 8.1 L Magnesium 1.9 Urine Color Yellow Urine Appearance Clear Urine pH 6.5 Ur Specific [place] 1.009 Urine Protein Negative Urine Glucose (UA) Negative Urine Ketones Negative Urine Blood Negative Urine Nitrite Negative Urine Bilirubin Negative Urine Urobilinogen Negative Ur Leukocyte Esterase Negative Diagnostic Findings Telemetry personally reviewed: Rate controlled atrial fibrillation converted to sinus rhythm at 1:11 AM. Currently sinus in the 70s. Labs reviewed from 01/02/2024 demonstrating stable renal function, normal potassium, slight anemia. ECHO 01/02/24: 1. Normal left ventricular size and systolic function. EF 60-65%. No regional wall motion abnormalities. No left ventricular hypertrophy. 2. Severe left atrial dilation. 3. Mild mitral regurgitation. 4. Normal estimated right ventricular systolic pressure. 5. Small pericardial effusion without echocardiographic evidence of tamponade physiology. 6. Compared to prior study on 03/17/2011, pericardial effusion is now present. Medications Administered Current Inpatient Medications Acetaminophen (Acetaminophen 325 Mg Tab) 650 mg PO Q4H PRN PRN Reason: Pain or Fever Stop: 01/31/24 12:04 Apixaban (Apixaban 5 Mg Tablet) 5 mg PO BID ANTWON Stop: 01/31/24 20:59 Last Admin: 01/02/24 08:33 Dose: 5 mg Atorvastatin Calcium (Atorvastatin 20 Mg Tab) 20 mg PO HS [facility] Stop: 01/31/24 20:59 Last Admin: 01/01/24 19:59 Dose: 20 mg Dronedarone (Dronedarone Hcl 400 Mg Tab) 400 mg PO BID ANTWON Stop: 02/01/24 09:14 Last Admin: 01/02/24 10:09 Dose: 400 mg Ondansetron HCl (Ondansetron Inj 2 Mg/Ml 2 Ml Vial) 4 mg IV Q6H PRN PRN Reason: Nausea Stop: 01/31/24 12:04 Tamsulosin HCl (Tamsulosin Hcl 0.4 Mg Cap) 0.4 mg PO HS [facility] Stop: 01/31/24 20:59 Last Admin: 01/01/24 19:59 Dose: 0.4 mg PG Care Time/CCT Total # of Minutes Spent Total Time Spent with Patient: Total time spent is greater than 50% in coordination of care (as documented) at patient's floor/unit and/or counseling patient: Coding Level of Care Code 53885 SUB INP/OBS CARE 3/50MIN Diagnoses Paroxysmal atrial fibrillation I48.0 Hypotension I95.9 Hypotension type: unspecified hypotension type Pericardial effusion I31.39 Orthostatic hypotension I95.1 (2) Hypotension Hypotension type: unspecified hypotension type Qualified Code(s): I95.9 - Hypotension, unspecified
--- NOTE | 2024-01-02 13:37 | Hospitalist Progress Note ---
Date of Service January 02, 2024 Assessment & Plan (1) Orthostatic hypotension: Plan: Hold metoprolol Discontinue flecainide. Patient is being switched over to Multaq by cardiology Monitor for arrhythmias other than a. fib on telemetry Hold alfuzosin Orthostatic vital signs are positive today JARRELL stockings ordered If orthostatic vital signs are better tomorrow, likely discharge tomorrow (2) Atrial fibrillation: Plan: Cardiology discontinued flecainide and started the patient on Multaq today Continue anticoagulation with Eliquis Plan VTE Prophylaxis - Eliquis Diet - regular Likely discharge tomorrow 01/02 Admission and Anticipated Discharge Date Admission Date: January 01, 2024 Subjective Patient says he feels well today. Denies chest pain or shortness of breath. Noted orthostatic vital signs this morning. Review of Systems Review of Systems: All systems reviewed & are unremarkable except as noted in Subjective Physical Exam Physical Exam: General: Awake, conversant Heart: S1, S2/regular rate and rhythm, no murmur rubs or gallops Lungs: Clear to auscultation bilaterally. Normal effort Abdomen: Soft/nontender/nondistended. No hepatosplenomegaly Extremities: No clubbing/cyanosis. No edema Behavior: Appropriate, cooperative Results & Data Results & Data Vital Signs (Past 12 Hours) Vital Signs Temp Pulse Pulse Resp BP Pulse Ox O2 Del Method 01/02/24 11:30 36.4 C L 68 18 127/80 96 Room Air 01/02/24 07:02 78 01/02/24 06:37 36.5 C 75 18 127/76 97 Room Air 01/02/24 02:50 36.7 C 73 18 126/76 97 Room Air Laboratory Results Abnormal lab results 01/02/24 Range/Units 06:55 RBC 4.08 L (4.70-6.10) M/uL Hgb 13.6 L (14.0-18.0) g/dl Hct 39.8 L (42.0-52.0) % MPV 8.7 L (9.4-12.4) fL [place] # (Auto) 0.73 H (0.11-0.59) K/uL Chloride 109 H (98-107) mmol/L Glucose 110 H (70-99(Fasting)) mg/dl Calcium 8.1 L (8.6-10.3) mg/dl PG Care Time/CCT Total # of Minutes Spent Total Time Spent with Patient: Total time spent is greater than 50% in coordination of care (as documented) at patient's floor/unit and/or counseling patient: Coding Level of Care Code 50563 SUB INP/OBS CARE 2/35MIN Diagnoses Orthostatic hypotension I95.1 Atrial fibrillation I48.91 Atrial fibrillation type: unspecified (2) Atrial fibrillation Atrial fibrillation type: unspecified Qualified Code(s): I48.91 - Unspecified atrial fibrillation
--- NOTE | 2024-01-02 17:59 | XCELERA ---
[id number]
[2024-01-02] MEDS: ONDANSETRON INJ 2 MG/ML 2 ML VIAL IV PRN (23:22)
--- NOTE | 2024-01-03 10:41 | Discharge Summary ---
Date of Service January 03, 2024 Admission HPI Per Admitting Provider Richmond Newby is an 83 year old male who presents to the ER dizziness. He was recently admitted for the same on December 22, 2023 after returning from [place] with a recently treated ear infection and was felt to be dehydrated - improved with IV fluids overnight to the point he was discharged later the same day. Since discharge he was improved but still wobbly when he went home, generally weak but he was improving initially. However since he was still having some dizziness and his BP was low he has a family member who is a pharmicist and recommended stopping his metoprolol on Sunday therefore has not taken this si nce then. He feels when he goes into atrial fibrillation and thinks he was in normal sinus rhythms up until last night when he felt palpitations and took his pulse and knew he was back in atrial fibrillation. This occurred while just watching TV around 8-9pm last night. Associated stiff neck and shoulder (now improved in the ER) and shortness of breath on exertion. However even before this he was very fatigued on exertion and reports his BP was 54/39 when he checked it in [employer] yesterday before the atrial fibrillation event and while off metoprolol. He notes already feeling better after IV fluids given in the ER. He thinks he has had 4 episodes of atrial fibrillation while on flecainide since August with increasing frequency. He notes previously being on a higher dose but this caused intolerable side effects. ER contacted cardiology and recommended holding both flecainide and metoprolol at this time. Admission Exam Per Admitting Provider Constitutional: WD/WN, vitals as above Eyes: PERRL, conjunctivae normal, anicteric sclerae ENMT: external ear and nose normal, oropharynx normal Respiratory: normal respiratory effort, lungs clear to auscultation Cardiovascular: Rate/Rhythm: regular rate and + irregularly irregular Heart Sounds: no murmur Extremities: normal capillary refill; no calf tenderness and no pedal edema Gastrointestinal (Abdomen): normal bowel sounds, soft, nontender, no hepatosplenomegaly Musculoskeletal: no cyanosis or clubbing, extremities motor strength 5/5 Skin: no rashes, warm and dry Neurologic: moves all extremities and awake; not confused Psychiatric: A+Ox3, euthymic affect Principal Diagnosis Orthostatic hypotension Symptomatic paroxysmal atrial fibrillation Discharge Exam General: Awake, conversant Heart: S1, S2/regular rate and rhythm, no murmur rubs or gallops Lungs: Clear to auscultation bilaterally. Normal effort Abdomen: Soft/nontender/nondistended. No hepatosplenomegaly Extremities: No clubbing/cyanosis. No edema Behavior: Appropriate, cooperative Discharge Data Allergies Allergy/AdvReac Type Severity Reaction Status Date / Time No Known Drug Allergies Allergy . Verified 01/01/24 10:33 Consultations 01/01/24 10:21 ED Decision to Admit Stat 01/01/24 12:05 Consult Cardiology Routine Hospital Course (1) Orthostatic hypotension: Hold metoprolol Discontinue flecainide. During this hospitalization, flecainide got switched over to Multaq by cardiology Hold alfuzosin JARRELL stockings ordered Orthostatic vital signs are better today. Discharge to home (2) Atrial fibrillation: Cardiology discontinued flecainide and started the patient on Multaq today Discontinued metoprolol Continue anticoagulation with Eliquis Advised to follow-up with EP cardiology in 2 weeks Plan Discharge to home today Total Time Total Time Spent Total Time Spent (In Minutes): 35 Discharge Plan Discharge Items Patient Disposition: Home - Self-Care Reason For Visit: orthostatic Discharge Diagnosis: Orthostatic hypotension Symptomatic paroxysmal atrial fibrillation Condition on Discharge: Fair Activity: Resume your previous activity Non-emergency contact: Primary Care Provider Call non-emergency contact if: you have any medication questions and your symptoms worsen Follow-up/Referrals: Poncho Cortez MD [Physician] - 01/29/24 10:00 am (Hospital follow up scheduled for January 28 at 10:[address] Cortez) Vicenta Hodge MD [Primary Care Provider] - 01/11/24 3:00 pm (Hospital follow up scheduled January 10 at 3:00) Diet: Heart Healthy Addtl Attending Provider Instructions: Advised to follow-up with PCP in 1 week Advised to follow-up with apartment leasing specialist in 2 weeks - You were noted to have orthostatic hypotension during this hospital stay. This means that your blood pressure drops when you sit up from a lying position and/or when you stand up from a sitting position. - There are some lifestyle modifications that will help with your condition: * Wearing waist high compression stockings. * Staying hydrated * Avoiding alcohol * Increasing salt in diet * Eating small meals if blood pressure drops after eating meals * Exercising * Getting up slowly. Moving slowly from a lying to standing position. Also when getting out of bed, sit on the edge of the bed for a minute before standing * Raising the head end of the bed during sleeping Pending Studies at Discharge: No Stand-Alone Forms: My [facility] Medications and DC Order Prescriptions: New tamsulosin 0.4 mg Capsule 0.4 mg PO HS 30 Days Qty: 30 0RF Multaq 400 mg Tablet 400 mg PO BID 30 Days Qty: 60 0RF Continued Eliquis 5 mg tablet 5 mg PO BID Qty: 180 3RF atorvastatin 20 mg tablet 20 mg PO HS Qty: 90 3RF Discontinued metoprolol succinate [Toprol XL] 50 mg tablet extended release 24 hr 0 mg PO QAM Rx Instructions: Per pt, med on hold as of 12/29/23 until follow-up with PCP. Original Directions: 50mg by mouth daily alfuzosin 10 mg tablet extended release 24 hr 0 mg PO DAILY Rx Instructions: Per pt, med on hold as of 12/29/23 until follow-up with PCP. Original Directions: 10mg by mouth daily No Action flecainide 50 mg tablet 50 mg PO Q12H Qty: 180 3RF Discharge Orders: Discharge Order (Routine); Ordered 01/03/24 Ordered By: Jayson Payne Admission Data Admit Date/Time: 01/01/24 10:27 Attending Provider: Jayson Payne Admit Provider: Rubens Christine Primary Care Provider: Vicenta Hodge Other Providers: Rubens Christine; Rober Saleem Other Interventions: Discharge Summary Assessment (RN) Last Done: 01/03/24 11:50 Coding Level of Care Code 89704 INP/OBS DISCH >30 MIN Diagnoses Orthostatic hypotension I95.1 Atrial fibrillation I48.91 Atrial fibrillation type: unspecified
--- NOTE | 2024-01-04 06:10 | Electrocardiogram Report ---
Test Reason : Blood Pressure : / mmHG Vent. Rate : 087 BPM Atrial Rate : 000 BPM P-R Int : 000 ms QRS Dur : 096 ms QT Int : 366 ms P-R-T Axes : 000 -55 057 degrees QTc Int : 440 ms Atrial fibrillation Left anterior fascicular block Abnormal ECG When compared with ECG of 21-DEC-2023 21:47, Atrial fibrillation has replaced Sinus rhythm Confirmed by Rober Saleem ([id number]) on 01/04/2024 6:10:53 AM Referred By: Confirmed By:Rober Saleem
--- NOTE | 2024-01-05 05:33 | Electrocardiogram Report ---
Test Reason : Blood Pressure : / mmHG Vent. Rate : 075 BPM Atrial Rate : 075 BPM P-R Int : 164 ms QRS Dur : 094 ms QT Int : 420 ms P-R-T Axes : 061 -52 052 degrees QTc Int : 469 ms Normal sinus rhythm Left anterior fascicular block Abnormal ECG When compared with ECG of 01-JAN-2024 09:24, Sinus rhythm has replaced Atrial fibrillation Confirmed by Rober Saleem ([id number]) on 01/05/2024 5:32:50 AM Referred By: REFERRED SELF Confirmed By:Rober Saleem
--- NOTE | 2024-01-05 05:33 | Electrocardiogram Report ---
Test Reason : Blood Pressure : / mmHG Vent. Rate : 071 BPM Atrial Rate : 071 BPM P-R Int : 160 ms QRS Dur : 102 ms QT Int : 430 ms P-R-T Axes : 072 -39 020 degrees QTc Int : 467 ms Normal sinus rhythm Left axis deviation Abnormal ECG When compared with ECG of 02-JAN-2024 13:05, No significant change was found Confirmed by Rober Saleem ([id number]) on 01/05/2024 5:33:06 AM Referred By: REFERRED SELF Confirmed By:Rober Saleem
== END 2024-01-03 13:44 | disposition home or self-care (01) ==
LOC: ED 09:11 → EDINP 09:11 → SUATTDRO 10:27 → 2S 11:37